=== PATIENT | female | born 1985 ===

== ENCOUNTER 2017-04-15 08:35 | Inpatient (IN) | payer OTHER ==
[2017-04-15 08:38] VITALS: O2SAT 98
--- NOTE | 2017-04-15 08:46 | ED PDOC ---
Psych Transfer Clearance - Clearance Statement Clearance Statement: Reviewed vital signs, lab results and transfer papers. Patient clinically stable for psychiatric admission.
[2017-04-15] MEDS ORDERED: Alum-Mag Hydrox-Simethicone Susp (30 mL) PO PRN (10:53)
[2017-04-15] MEDS ORDERED: DiphenhydrAMINE 50 mg/ml Inj IM PRN (10:53)
[2017-04-15] MEDS ORDERED: Magnesium Hydroxide Susp 30 ml UD PO PRN (10:53)
--- NOTE | 2017-04-15 16:18 | PCM.PSYCH ---
Initial Psychiatric Evaluation - Initial Psychiatric Evaluation Legal Status: Capacity Chief Complaint (in patient's own words): I think every body is watching me Patient's Reaction to Hospitalization: pt ambivalent about hospitalization Current Medications: Active Medications Generic Name Dose Route Start Last Admin Trade Name Freq PRN Reason Stop Dose Admin Acetaminophen 650 mg 04/15/17 10:53 Tylenol 325mg Tab PO Q4 PRN Pain, moderate (4-7) Al Hydrox/Mg Hydrox/Simethicone 30 ml 04/15/17 10:53 Maalox Plus 30 Ml PO Q4 PRN Dyspepsia Diphenhydramine HCl 50 mg 04/15/17 10:53 Benadryl IM Q6 PRN Extrapyramidal S/S Unable PO Diphenhydramine HCl 50 mg 04/15/17 10:53 Benadryl PO Q6 PRN Extrapyramidal Symptoms Haloperidol 5 mg 04/15/17 10:53 Haldol PO Q4 PRN Agitation Haloperidol Lactate 5 mg 04/15/17 10:53 Haldol IM Q4 PRN Agitation, Unable to Take PO Lorazepam 2 mg 04/15/17 10:53 Ativan IM Q4 PRN Anxiety/Agitation,Unable PO Lorazepam 2 mg 04/15/17 10:53 Ativan PO Q4 PRN Anxiety/Agitation Magnesium Hydroxide 30 ml 04/15/17 10:53 Milk Of Magnesia PO HS PRN Constipation Quetiapine Fumarate 100 mg 04/15/17 22:00 Seroquel PO HS KASEY Past Psychiatric History - Past Psychiatric History Pertinent Medical Hx (Current Medical&Sleep Prob, Allergies): Allergies Allergy/AdvReac Type Severity Reaction Status Date / Time No Known Allergies Allergy Verified 04/15/17 08:52
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
--- NOTE | 2017-04-16 01:38 | PCM.BM ---
<EddieManju C - Last Filed: 04/16/17 01:36> Treatment Plan Problems - Problems identified on initial assessmt Hopelessness/ Helplessness Assessment reference: NA Status: Active Altered Sleep Patterns Date Initiated: 04/16/17 Time Initiated: 01:37 Assessment reference: NA Status: Active Treatment assets and liabiliti Patient Assests: cooperative, educated, ADL independent, physically healthy, good support system, negotiates basic needs Patient Liabilities: relationship conflicts - Milieu Protocol Maintain good personal hygiene: daily Encourage regular showers, daily Remind patient to perform daily oral care Conduct patient checks and document Observation sheet: Q15 minutes Maintain personal safety: every shift Educate patient to report safety concerns to staff, every shift Monitor environment for contraband/sharps Medication safety: Monitor for expected outcome, potential side effects: every shift, Assess barriers to learning: every shift, Assess readiness for medication education: every shift Milieu Narrative: start seroquel 100mg qhs with plan to uptitrate gradually to 300mg monitor pt for psychopharmacological effects and side effect profile CBT group and supportive therapy Discharge/Continuing Care - Treatment Team Participation Patient/Family/SO Statement: start seroquel 100mg qhs with plan to uptitrate gradually to 300mg monitor pt for psychopharmacological effects and side effect profile CBT group and supportive therapy <Naresh Vasquez - Last Filed: 04/17/17 08:30> Family Contact Family involvement: Family/SO is involved Family contact: Patient agrees to contact, Family has been contacted by patient , Telephone contact initiated by staff Family contact name: Kim Atkinson Family contacted how many times per week?: 3 Family contact comment: Behavioral Health Tech spoke to pt's mother at the request of the pt. Behavioral Health Tech explained to pt's mother the unit and it's procedure. Pt's mother admitted that pt has been admitted in the past for paranoia. Pt's mother requested that fiction and nonfiction writer prose send an email to pt's boss informing her of pt's hospitalization. - Goals for Treatment Patient goals for treatment: Pt currently exhibiting poor insight and does not believe she has a diagnosed psychiatric disorder, despite this being her 5th psychiatric hospitalization. Behavioral Health Tech confronted pt with the fact that pt may be exhibiting symptoms of paranoia and pt did not deny this assertion. Pt understanding and willing to remain hospitalized to gather herself for several days to decrease her anxiety and distress. Patient's family/SO goals for treatment: Pt's mother did not express any specific goals, but does feel that pt does need to remain hospitalized for psychiatric stabilization. Discharge/Continuing Care - Education Needs Education Needs: Family Medication, Family Diagnosis/Disease Process, Family Coping Skills, Family Community resources, Family Aftercare Safety Plan, Patient Medication, Patient Diagnosis/Disease Process, Patient Coping Skills, Patient Community resources, Patient Aftercare Safety Plan - Discharge Discharge Criteria: Tolerates medication w/o severe side effects, Free of Suicidal thoughts, Free of paranoid thoughts, Free of agitation, Normal sleep pattern, Reduction of target symptoms Discharge to:: Home - Treatment Team Participation Discussed with Family/SO: Yes Was Patient/Family/SO present at Treatment Team Meeting: Yes <Yuki Pozo - Last Filed: 04/18/17 14:37> Discharge/Continuing Care - Treatment Team Participation Patient/Family/SO Statement: Patient attended tx team this morning and was better able to engage in discussion regarding symptoms, progress and tx recommendations. Patient able to correlate calling 911 from [facility] this weekend to symptoms of paranoia independently. Patient depressed but brighter than upon admission. Thoughts are clear and connected. Patient reported anxiety, racing thoughts and poor sleep. Patient expressed feeling better after being given Ativan. Patient remains hesitant regarding medication changes secondary to hx of side effects but has agreed to an increase in Seroquel. Risks of long-term ativan use discussed at length. Patient expressed understanding and is agreeable to having ativan replaced with neurontin. Benefits of eventual addition of a mood stabilizer discussed. Patient ambivalent but receptive. Patient has shown slight improvement in insight into precursors to hospitalization, illness and importance of compliance with aftercare. Patient denies SI/HI and is able to contract for safety on [facility]. 04/18/17 14:37 <Jennifer Cedeño - Last Filed: 04/19/17 11:39> - Diagnosis (1) Paranoid delusion Status: Acute Interventions: 04/19/17 11:39 psychotherapy, pharmacotherapy
[2017-04-16 08:38] LABS: T4 9.91 ug/dl (5.5-11.0)
--- NOTE | 2017-04-16 10:32 | PCM.PYCHPN ---
Psychiatric Progress Note - Psychiatric Progress Note Patient seen today, length of contact: pt seen and evaluated Patient Chief Complaint: pt still feels depressed and also paranoid .pt is still hallucinating seeing the images of things happening in the world .pt denies side effects to meds. DSM 5 Symptoms Update: Bipolar disorder I ,mixed type Medication Change: Yes Mental Status Examination - Cognitive Function Orientation: Person, Place Attention: Poor Concentration: Poor Association: WNL Fund of Knowledge: WNL - Mood Mood: Depressed, Anxious - Affect Affect: Constricted - Formal Thought Process Formal Thought Process: Delusions, Paranoia, Circumstantial - Suicidal Ideation Suicidal Ideation: No - Homicidal Ideation Homicidal Ideation: No Goal/Treatment Plan - Goal/Treatment Plan Progress Toward Problem(s) and Goals/Treatment Plan: will continue to titrate up seroquel to stabilize the pt and engage pt in therapy and groups. disposition plans as per dr frederick
[2017-04-17] MEDS ORDERED: Trimethobenzamide 200 mg/2 mL Inj IM ONE (02:14)
--- NOTE | 2017-04-17 13:09 | PCM.PYCHPN ---
Psychiatric Progress Note - Psychiatric Progress Note Patient seen today, length of contact: pt seen and evaluated Patient Chief Complaint: pt has been increasingly paranoid and last night called the police .pt is still hallucinating seeing the images of things happening in the world .pt denies side effects to meds. Medication Change: Yes Mental Status Examination - Cognitive Function Orientation: Person, Place Attention: Poor Concentration: Poor Association: WNL Fund of Knowledge: WNL - Mood Mood: Depressed, Anxious - Affect Affect: Constricted - Formal Thought Process Formal Thought Process: Delusions, Paranoia, Circumstantial - Suicidal Ideation Suicidal Ideation: No - Homicidal Ideation Homicidal Ideation: No Goal/Treatment Plan - Goal/Treatment Plan Progress Toward Problem(s) and Goals/Treatment Plan: will continue to titrate up seroquel to 175 mg hs to stabilize the pt and engage pt in therapy and groups. disposition plans as per dr frederick will start pt on zoloft 25 mg daily and pt agreed .
[2017-04-17] MEDS ORDERED: Atropine-Diphenoxylate 0.025-2.5 mg Tab PO PRN (15:18)
[2017-04-17 17:10] LABS: HEMOGLOBIN 14.1 g/dL (12.0-16.0); MEAN CELL VOLUME 90.9 fl (81.0-99.0); MEAN CORPUSCULAR HEMOGLOBIN 30.3 pg (27.0-31.0); MEAN CORPUSCULAR HGB CONC 33.3 g/dL (33.0-37.0); RBC 4.66 Mil/uL (3.80-5.20); RED CELL DISTRIBUTION WIDTH 13.7 % (11.5-14.5); WHITE BLOOD COUNT 10.5 K/uL (4.8-10.8)
[2017-04-17 17:21] LABS: ALBUMIN 4.8 g/dL (3.5-5.0); ALT/SGPT 66 U/L (9-52); AST/SGOT 68 U/L (14-36); BLOOD UREA NITROGEN 8 mg/dl (7-17); CALCIUM 9.9 mg/dL (8.4-10.2); GFR AFRICAN-AMERICAN > 60; GFR NON-AFRICAN AMERICAN > 60
[2017-04-17 17:31] LABS: ALB/GLOB RATIO 1.4 (1.0-2.1)
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
[2017-04-17] MEDS ORDERED: Zinc Oxide 5 APPL/28 GM OINT TP PRN (22:15)
--- NOTE | 2017-04-18 15:00 | PCM.PYCHPN ---
Psychiatric Progress Note - Psychiatric Progress Note Patient seen today, length of contact: pt seen and evaluated Patient Chief Complaint: I called the police because I was worried about my mother Problems Identified/Issues Discussed: pt continues to be paranoid guarded, presenting with disorganized thought procees, pt reported she called police on the unit for safety of her mother pt continues to be argumentative about taking medications with limited insight into her illness pt reported early insomnia denied any current suicidal or homicidal ideations denied command hallucinations no reported side ffects of the medications Medical Problems: pt since age 20 was diagnosed with bipolar disorder with multiple inpatient psychiatric hospitalizations including voluntary and involuntary admissions DSM 5 Symptoms Update: bipolar disorder mixed Medication Change: Yes (increase seroquel ) Medical Record Reviewed: Yes Mental Status Examination - Cognitive Function Orientation: Person, Place Attention: Poor Concentration: Poor Association: WNL Fund of Knowledge: WNL - Mood Mood: Depressed, Anxious - Affect Affect: Constricted - Formal Thought Process Formal Thought Process: Delusions, Paranoia, Circumstantial - Suicidal Ideation Suicidal Ideation: No - Homicidal Ideation Homicidal Ideation: No Goal/Treatment Plan - Goal/Treatment Plan Need for Continued Stay: Severe depression anxiety, Discharge may exacerbated symptoms Progress Toward Problem(s) and Goals/Treatment Plan: increase seroquel 200mg qhs with plan to uptitrate gradually to 300mg monitor pt for psychopharmacological effects and side effect profile CBT group and supportive therapy
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
--- NOTE | 2017-04-20 13:22 | PCM.PYCHPN ---
Psychiatric Progress Note - Psychiatric Progress Note Patient seen today, length of contact: pt seen and evaluated Patient Chief Complaint: I have diarrhea and pain because of the medicine Problems Identified/Issues Discussed: pt reported by staff, to be agitated and paranoid last night , needed a lot of encouragment to take her medicine, pt continued to be vrbally agitated and had to be given haldol and ativan pt continues to be paranoid with multiple somatic complaints, discussed with pt starting risperidone mtab, with plan to change to risperidone consta for ensuring medication compliance, pt agreed continues to be isolative in her room, refusing to attend groups today pt denied any current suicidal or homicidal ideations denied command hallucinations Medical Problems: pt since age 20 was diagnosed with bipolar disorder with multiple inpatient psychiatric hospitalizations including voluntary and involuntary admissions DSM 5 Symptoms Update: bipolar disorder mixed severe with psychotic features Medication Change: Yes (start risperidone) Medical Record Reviewed: Yes Mental Status Examination - Cognitive Function Orientation: Person, Place Attention: WNL Concentration: WNL Association: WNL Fund of Knowledge: WNL Decription of patient's judgement and insights: poor insight and judgment - Mood Mood: Depressed, Anxious - Affect Affect: Constricted - Speech Speech: Soft - Formal Thought Process Formal Thought Process: Delusions, Paranoia, Circumstantial Psychotic Thoughts and Behaviors: pt paranoid and guarded - Suicidal Ideation Suicidal Ideation: No - Homicidal Ideation Homicidal Ideation: No Goal/Treatment Plan - Goal/Treatment Plan Need for Continued Stay: Severe depression anxiety, Discharge may exacerbated symptoms Progress Toward Problem(s) and Goals/Treatment Plan: discontinue seroquel and prazosin start risperidone mtab 1mg po bid trazdone 100mg qhs monitor pt for psychopharmacological effects and side effect profile CBT group and supportive therapy Estimated Date of D/C: 04/27/17
[2017-04-20] MEDS: Risperidone M tab 1 MG PO SCH ×2 (14:16→18:54)
[2017-04-21] MEDS: Risperidone M tab 1 MG PO SCH (09:21)
--- NOTE | 2017-04-21 13:06 | PCM.PYCHPN ---
Psychiatric Progress Note - Psychiatric Progress Note Patient seen today, length of contact: pt seen and evaluated Patient Chief Complaint: I feel better today Problems Identified/Issues Discussed: pt seen in day room, appears less paranoid, interacting with other patients and attending groups, reported feeling less depressed, mood better and brighter affect, discussed with pt increasing risperidone to 2mg qhs , no reported side effects of medication, pt less guarded, denied any current suicidal or homicidal ideations denied perceptual disturbances Medical Problems: pt since age 20 was diagnosed with bipolar disorder with multiple inpatient psychiatric hospitalizations including voluntary and involuntary admissions DSM 5 Symptoms Update: bipolar disorder mixed Medication Change: Yes (increase risperidone) Medical Record Reviewed: Yes Mental Status Examination - Cognitive Function Orientation: Person, Place Attention: WNL Concentration: WNL Association: WNL Fund of Knowledge: WNL Decription of patient's judgement and insights: poor insight and judgment - Mood Mood: Depressed, Anxious - Affect Affect: Constricted - Speech Speech: Soft - Formal Thought Process Formal Thought Process: Paranoia, Circumstantial Psychotic Thoughts and Behaviors: pt paranoid and guarded - Suicidal Ideation Suicidal Ideation: No - Homicidal Ideation Homicidal Ideation: No Goal/Treatment Plan - Goal/Treatment Plan Need for Continued Stay: Severe depression anxiety, Discharge may exacerbated symptoms Progress Toward Problem(s) and Goals/Treatment Plan: risperidone mtab 3mg monitor pt for psychopharmacological effects and side effect profile CBT group and supportive therapy Estimated Date of D/C: 04/27/17
[2017-04-21] MEDS ORDERED: Risperidone M TAB 2 MG PO SCH (22:00)
[2017-04-22] MEDS ORDERED: Risperidone M tab 1 MG PO SCH (09:00)
[2017-04-22] MEDS ORDERED: risperiDONE Consta 25mg/2ml Syringe IM ONE (14:14)
--- NOTE | 2017-04-22 14:29 | PCM.PYCHPN ---
Psychiatric Progress Note - Psychiatric Progress Note Patient seen today, length of contact: pt seen and evaluated Patient Chief Complaint: I feel overwhelmed, worried about the future Problems Identified/Issues Discussed: pt seen in day room, thought process more clear, resolving paranoid delusions, pt more interactive with the treatment team, less isolative, showing more insight into her illness, discussed with pt starting risperidone consta injection to ensure compliance and avoid re hospitalization, pt agreed pt reported feeling anxious about her work and her follow up, CBT provided and discussed with pt the need for follow up therapy on discharge no reported side effects of medications denied any current suicidal or homicidal ideations Medical Problems: pt since age 20 was diagnosed with bipolar disorder with multiple inpatient psychiatric hospitalizations including voluntary and involuntary admissions DSM 5 Symptoms Update: bipolar I disorder mixed Medication Change: Yes (start risperidone consta) Medical Record Reviewed: Yes Mental Status Examination - Cognitive Function Orientation: Person, Place Attention: WNL Concentration: WNL Association: WN Fund of Knowledge: [facility] Decription of patient's judgement and insights: poor insight and judgment - Mood Mood: Depressed, Anxious - Affect Affect: Constricted - Speech Speech: Soft - Formal Thought Process Formal Thought Process: Paranoia, Circumstantial Psychotic Thoughts and Behaviors: clearing off of the paranoid delusions denied perceptual disturbances, non elicited - Suicidal Ideation Suicidal Ideation: No - Homicidal Ideation Homicidal Ideation: No Goal/Treatment Plan - Goal/Treatment Plan Need for Continued Stay: Severe depression anxiety, Discharge may exacerbated symptoms Progress Toward Problem(s) and Goals/Treatment Plan: start risperidone consta 25mg IM risperidone mtab 2mg monitor pt for psychopharmacological effects and side effect profile CBT group and supportive therapy Estimated Date of D/C: 04/27/17
[2017-04-22] MEDS: Risperidone M tab 1 MG PO SCH (21:11)
[2017-04-23] MEDS ORDERED: Risperidone M tab 1 MG PO SCH (09:00)
--- NOTE | 2017-04-23 11:22 | PCM.PYCHPN ---
Psychiatric Progress Note - Psychiatric Progress Note Patient seen today, length of contact: Patient evaluated, case discussed with team, chart reviewed Patient Chief Complaint: "I'm up and down." Problems Identified/Issues Discussed: Patient reports that her mood continues to fluctuate, but overall she believes her mood has improved since admission. She also reports some mild intermittent AH, but they are also diminished since admission. Patient received Risperdal Consta 25 mg yesterday. Psychoeducation provided re: importance of medication and follow-up treatment. Medication Change: No Medical Record Reviewed: Yes Consults ordered or reviewed: Medicine consult Mental Status Examination - Cognitive Function Orientation: Person, Place, Situation, Time Memory: Intact Attention: WNL Concentration: WNL Association: WNL Fund of Knowledge: [facility] Decription of patient's judgement and insights: Fair I/J - Mood Mood: Anxious - Affect Affect: Constricted - Speech Speech: Soft - Formal Thought Process Formal Thought Process: Hallucinations Psychotic Thoughts and Behaviors: Mild intermittent AH - Suicidal Ideation Suicidal Ideation: No - Homicidal Ideation Homicidal Ideation: No Goal/Treatment Plan - Goal/Treatment Plan Need for Continued Stay: Severe depression anxiety, Discharge may exacerbated symptoms Progress Toward Problem(s) and Goals/Treatment Plan: Bipolar Disorder w/ psychotic features -Continue Risperdal 1 mg PO Q12 -Patient given Risperdal Consta 25 mg IM on 04/22 -Individual and group therapy -Likely discharge on Tuesday if patient continues to improve clinically -Psychoeducation provided -Continue Trazodone 50 mg PO HS Estimated Date of D/C: 04/27/17
[2017-04-23] MEDS: Risperidone M tab 1 MG PO SCH (21:16)
--- NOTE | 2017-04-24 09:42 | PCM.PYCHPN ---
Psychiatric Progress Note - Psychiatric Progress Note Patient seen today, length of contact: Patient evaluated, case discussed with team, chart reviewed Patient Chief Complaint: "I'm feeling better." Problems Identified/Issues Discussed: Patient reports that her mood is improving. She denies current AH, reports that she last heard them yesterday. She feels tired during the day, so we discussed switching the Risperdal to night time. Psychoeducation provided re: importance of medication and follow-up treatment. Medication Change: No Medical Record Reviewed: Yes Consults ordered or reviewed: Medicine consult Mental Status Examination - Cognitive Function Orientation: Person, Place, Situation, Time Memory: Intact Attention: WNL Concentration: WNL Association: WNL Fund of Knowledge: [facility] Decription of patient's judgement and insights: Fair I/J - Mood Mood: Anxious - Affect Affect: Constricted - Speech Speech: Appropriate - Formal Thought Process Formal Thought Process: No Impairment Psychotic Thoughts and Behaviors: No AH/VH/paranoia/delusions - Suicidal Ideation Suicidal Ideation: No - Homicidal Ideation Homicidal Ideation: No Goal/Treatment Plan - Goal/Treatment Plan Need for Continued Stay: Discharge may exacerbated symptoms Progress Toward Problem(s) and Goals/Treatment Plan: Bipolar Disorder w/ psychotic features -Switch Risperdal to 2 mg PO HS -Patient given Risperdal Consta 25 mg IM on 04/22 -Individual and group therapy -Likely discharge on Tuesday if patient continues to improve clinically -Psychoeducation provided -Continue Trazodone 50 mg PO HS Estimated Date of D/C: 04/25/17
[2017-04-25 09:12] VITALS: BP 119/74; PULSE 87; RESP 18; TEMP 96.6
--- NOTE | 2017-04-25 09:14 | PCM.PYCHDC ---
Mental Status Examination - Mental Status Examination Orientation: Person, Place, Situation, Time Memory: Intact Mood: Neutral Affect: Broad Speech: Appropriate Attention: WNL Concentration: WNL Association: WNL Fund of Knowledge: WNL Formal Thought Process: No Impairment Description of patient's judgement and insight: Good I/J Psychotic Thoughts and Behaviors: No AH/VH/paranoia/delusions Suicidal Ideation: No Current Homicidal Ideation?: No Discharge Summary - Discharge Note Reason for Hospitalization: As per initial H & P: "pt with previous psychiatric diagnosis of bipolar disorder, has not been compliant with medications or follow up for two years, pt has been decompensating reported having episodes of depression with low energy and inability to function alternating with hypomanic episodes with poor sleep spending sprees and having multiple partners, pt for past two weeks has been increasingly paranoid feeling that people are after her wants to hurt her m , she became unable to function at work, on day of evaluation pt called the police stating that she is being held as hostage by evil people in her house, pt was found in her bed by police, exhibiting paranoid and disorganized behavior resistant to comming to ER and needed a lot of encouragement on evaluation pt guarded evasive, parnaoid towards undersigned and staff, stating she is fearing for her safety and worried something bad will happen to her denied perceptual disturbances or command hallucinations denied substance use" Consultations:: List each consultation separately and include: 1. Reason for request. 2. Findings. 3. Follow-up Consultations: Medicine consult Summary of Hospital Course include:: 1. Description of specific treatment plan utilized for patients during their course of treatmen. 2. Summarize the time- course for resolution of acute symptoms and/or regressed behaviors. 3. Describe issues identified and worked on during hospitalization. 4. Describe medication utilized. 5. Describe medical problems identified and treated. 6. Reassessment of suicide risk Summary of Hospital Course: Patient was admitted to the psychiatry unit. Individual and group therapy were provided. Patient was evaluated by a emergency medical service manager. She was stabilized on Risperdal and was given Risperdal 25 mg IM on 04/22/17 (next injection due 05/06); patient will continue oral Risperdal until her next injection. She no longer reports mood disturbances or psychotic symptoms. No current depression/ anxiety/AH/VH/paranoia/delusions/SI/HI. Patient is psychiatrically stable for discharge with outpatient follow-up. - Final Diagnosis (DSM 5) Condition upon Discharge: STABLE DSM 5: Bipolar Disorder w/ psychotic features Disposition: HOME/ ROUTINE Follow-up Treatment Plan: Bipolar Disorder w/ psychotic features -Continue Risperdal to 2 mg PO HS until next Rispedal Consta injection -Patient given Risperdal Consta 25 mg IM on 04/22 -Continue Trazodone 50 mg PO HS -Discharge w/ outpatient follow-up Prescriptions/Medication Reconciliation: Risperidone [RisperDAL Consta] 25 mg IM Q2W #1 syr risperiDONE [RisperDAL Tab] 2 mg PO HS #30 tab traZODone [Desyrel] 50 mg PO HS #30 tab - Smoking Cessation Smoking Cessation Medication prescribed: No Reason for not providing: Not indicated - Antipsychotic Medications Pt discharged on 2 or more routine antipsychotic medications: No
== END 2017-04-25 15:30 | disposition home or self-care (01) | DRG 885 ==
LOC: H.ER 08:35 → H.ERHOLD 08:45 → H.PSYCH 09:22
PROVIDERS: ADMIT Psychiatry & Neurology Psychiatry; ATTEND Psychiatry & Neurology Psychiatry
PROC: GZHZZZZ Group Psychotherapy (ICD-10-PCS; principal; 2017-04-17)
PROC: GZ51ZZZ Individual Psychotherapy, Behavioral (ICD-10-PCS; 2017-04-17)
DX: F31.64 Bipolar disorder, current episode mixed, severe, with psychotic features (principal); Z91.14 Patient's other noncompliance with medication regimen; F23 Brief psychotic disorder; G47.00 Insomnia, unspecified; K52.9 Noninfective gastroenteritis and colitis, unspecified; Z79.899 Other long term (current) drug therapy; F41.9 Anxiety disorder, unspecified

== ENCOUNTER 2017-05-02 21:52 | Inpatient (IN) | payer OTHER ==
[2017-05-02 22:50] VITALS: BMI 21.0
--- NOTE | 2017-05-03 00:44 | ED PDOC ---
HPI: Psych/Substance Abuse Time Seen by Provider: 05/02/17 23:00 Chief Complaint (Nursing): Psychiatric Evaluation Chief Complaint (Provider): Psychiatric Evaluation History Per: Patient History/Exam Limitations: no limitations Current Symptoms Are (Timing): Still Present Suicide/Self Injury Attempted (Context): None Modifying Factor(s): Alcohol Additional Complaint(s): 32 year old female presents to ED for a psychiatric evaluation and has a past medical history of bipolar disorder, anxiety, and depression. Patient was recently an inpatient in this hospital and had her medications changed. She stopped takin them yesterday because she felt as if "they weren't working". Notes having an "episode" today where she broke down and shaved off all of the hair on her head. (-) suicidal/homicidal ideation or hallucinations. Admits to alcohol usage today, but denies drug use. PCP: in [place] Past Medical History Reviewed: Historical Data, Nursing Documentation, Vital Signs Vital Signs: Last Vital Signs Temp 97.9 F 05/02/17 22:50 Pulse 90 05/02/17 22:50 Resp 16 05/02/17 22:50 BP 114/72 05/02/17 22:50 Pulse Ox 98 05/02/17 22:50 - Medical History PMH: Anxiety, Bipolar Disorder, Depression Denies: No Chronic Diseases, Chronic Kidney Disease - Family History Family History: States: No Known Family Hx - Social History Current smoker - smoking cessation education provided: No Alcohol: Other ((+) drinker) Drugs: Cannabis, Other (Hookah) - Home Medications Home Medications: Ambulatory Orders Medication Instructions Recorded Risperidone [RisperDAL Consta] 25 mg IM Q2W #1 syr 04/23/17 traZODone [Desyrel] 50 mg PO HS #30 tab 04/23/17 risperiDONE [RisperDAL Tab] 2 mg PO HS #30 tab 04/24/17 - Allergies Allergies/Adverse Reactions: Allergies Allergy/AdvReac Type Severity Reaction Status Date / Time No Known Allergies Allergy Verified 05/02/17 22:50 Review of Systems ROS Statement: Except As Marked, All Systems Reviewed And Found Negative Psych: Positive for: Other ((+) "episode", (-) homicidal ideation). Negative for: Psychosis, Suicidal ideation Physical Exam - Reviewed Nursing Documentation Reviewed: Yes Vital Signs Reviewed: Yes - Physical Exam Appears: Positive for: Non-toxic, No Acute Distress Head Exam: Positive for: ATRAUMATIC, NORMOCEPHALIC Skin: Positive for: Warm, Dry Eye Exam: Positive for: EOMI, PERRL Neck: Positive for: Painless ROM Respiratory: Negative for: Accessory Muscle Use, Respiratory Distress Extremity: Positive for: Normal ROM. Negative for: Deformity Lymphatic: Negative for: Adenopathy Neurologic/Psych: Positive for: Alert, Mood/Affect (flat). Negative for: Motor/ Sensory Deficits - Laboratory Results Result Diagrams: 05/02/17 00:45 05/02/17 23:59 - ECG O2 Sat by Pulse Oximetry: 98 (RA) Pulse Ox Interpretation: Normal Medical Decision Making Medical Decision Makin Initial impression: decompensated bipolar disorder Initial plan: * EtOH serum * Labs * UDrug screen * Crisis eval * 1:1 OBS [address] Camargo pending labs and crisis eval. Scribe Attestation: Documented by Vanessa Rand acting as a scribe for Saima Buckley MD. Scribe Attestation: All medical record entries made by the Scribe were at my direction and personally dictated by me. I have reviewed the chart and agree that the record accurately reflects my personal performance of the history, physical exam, medical decision making, and the department course for this patient. I have also personally directed, reviewed, and agree with the discharge instructions and disposition. Disposition - Clinical Impression Clinical Impression: Bipolar disorder - Disposition Disposition: Transfer of Care Disposition Time: 00:00 Condition: STABLE Patient Signed Over To: Kelton Camargo III Handoff Comments: pending labs and crisis eval
[2017-05-03 00:51] LABS: BARBITURATES, UR NEGATIVE (NEGATIVE); BENZODIAZEPINES, UR NEGATIVE (NEGATIVE); OPIATES, UR NEGATIVE (NEGATIVE); PHENCYCLIDINE, UR NEGATIVE (NEGATIVE)
[2017-05-03 00:56] LABS: BASO # 0.1 K/uL (0.0-0.2); BASO % 0.6 % (0.0-2.0); EOS % 0.3 % (0.0-4.0); HEMOGLOBIN 12.5 g/dL (12.0-16.0); LYMPH # 1.9 K/uL (1.0-4.3); LYMPH % 12.7 % (20.0-40.0); MEAN CELL VOLUME 89.8 fl (81.0-99.0); MEAN CORPUSCULAR HGB CONC 33.4 g/dL (33.0-37.0); MEAN PLATELET VOLUME 7.7 fl (7.2-11.7); MONO # 1.1 K/uL (0.0-0.8); MONO % 7.3 % (0.0-10.0); NEUT # 11.8 K/uL (1.8-7.0); NEUT % 79.1 % (50.0-75.0); RBC 4.16 Mil/uL (3.80-5.20); WHITE BLOOD COUNT 14.9 K/uL (4.8-10.8)
[2017-05-03 01:11] LABS: ALB/GLOB RATIO 1.3 (1.0-2.1); ALBUMIN 4.7 g/dL (3.5-5.0); ALT/SGPT 42 U/L (9-52); AST/SGOT 23 U/L (14-36); BLOOD UREA NITROGEN 14 mg/dl (7-17); CALCIUM 9.5 mg/dL (8.4-10.2); GFR AFRICAN-AMERICAN > 60; GFR NON-AFRICAN AMERICAN > 60
[2017-05-03 02:10] LABS: SQUAMOUS EPITHIAL 4 /hpf (0-5); URINE BACTERIA OCC (<OCC); URINE BILIRUBIN NEGATIVE (NEGATIVE); URINE BLOOD LARGE (NEGATIVE); URINE CLARITY CLOUDY (Clear); URINE COLOR YELLOW (YELLOW); URINE GLUCOSE (UA) NEG (Normal); URINE PROTEIN 100 mg/dL (NEGATIVE); URINE UROBILINOGEN 0.2-1.0 mg/dL (0.2-1.0)
[2017-05-03 02:11] LABS: URINE LEUKOCYTE ESTERASE SMALL Leu/uL (Negative)
--- NOTE | 2017-05-03 03:13 | ED PDOC ---
- Laboratory Results Result Diagrams: 05/02/17 00:45 05/02/17 23:59 - ECG O2 Sat by Pulse Oximetry: 99 Medical Decision Making Medical Decision Making: per crisis admit 3N labs reviewed, mild elev WBC Denies cough, abd pain, headache or neck pain UA +blood and small leuks preg neg Denies abdominal pain, no abd or CVA tenderness. CXR no acute infiltrate Cover urine with cipro given mildly elev WBC Admit psychiatry Medically stable for psychiatric admission at this time. Disposition Counseled Patient/Family Regarding: Studies Performed, Diagnosis, Need For Followup - Clinical Impression Clinical Impression: Bipolar disorder - POA Present On Arrival: None - Disposition Disposition: Admitted as In-Patient Disposition Time: 00:55 Condition: STABLE
[2017-05-03] MEDS ORDERED: Magnesium Hydroxide Susp 30 ml UD PO PRN (03:50)
--- NOTE | 2017-05-03 04:08 | PCM.BM ---
<Payal Lazcano - Last Filed: 05/03/17 04:06> Treatment Plan Problems - Problems identified on initial assessmt Auditory Hallucinations Date Initiated: 05/03/17 Time Initiated: 04:07 Assessment reference: NA Status: Active Medication Nonadherence Date Initiated: 05/03/17 Time Initiated: 04:07 Assessment reference: NA Status: Active Altered Thought Process Date Initiated: 05/03/17 Time Initiated: 04:08 Assessment reference: NA Status: Active Ineffective Coping Date Initiated: 05/03/17 Time Initiated: 04:08 Assessment reference: NA Status: Active Treatment assets and liabiliti Patient Assests: cooperative, educated, ADL independent, physically healthy, good support system, negotiates basic needs Patient Liabilities: other (impaired insight and noncomplinace wiht meds) - Milieu Protocol Maintain good personal hygiene: daily Remind patient to perform daily oral care , every shift Encourage regular showers, every shift Assist patient to perform ADL's Conduct patient checks and document Observation sheet: Q15 minutes Maintain personal safety: daily Educate patient to report safety concerns to staff, every shift Monitor environment for contraband/sharps Medication safety: Monitor for expected outcome, potential side effects: daily, Assess barriers to learning: daily, Assess readiness for medication education: every shift <Naresh Vasquez - Last Filed: 05/04/17 11:43> Family Contact Family involvement: Family/SO is involved Family contact: Patient declines to allow family contact at present Family contact name: Kim (Mother) [phone] Family contacted how many times per week?: 4 Family contact comment: Cash Applications Clerk spoke with pt's mother on 05/03/17, however, pt verbalized that she would like staff not to speak to anyone in her life at this time as she wants time to heal alone. Cash Applications Clerk spoke with pt's mother who had multiple concerns regarding pt. Pt's mother does not understand how pt could have decompensated so quickly and so severely. Pt's mother reported that she has never seen pt present this bizarrely and was fearful that pt may harm herself. Cash Applications Clerk explained that pt is not in danger of intentionally harming herself, but in this psychotic state may engage in impulsive, risky behaviors that may put her in danger. Cash Applications Clerk explained that pt was not discharged too early last time, but may have needed more time on the Risperdal. However, pt does lack needed insight into her illness to understand the need for treatment and continued medication compliance. Cash Applications Clerk feels strongly that pt would benefit from living with her mother after discharge and explained to pt's mother that the team will do everything in their power to ensure that pt is discharged with a more comprehensive plan to avoid such a rapid decompensation. - Goals for Treatment Patient goals for treatment: Pt unable to verbalize any goals in team. Pt said multiple times that she did not want to "talk about it right now." Pt appeared internally preoccupied with intense eye-contact. Patient's family/SO goals for treatment: Pt's mother would like further stabilization and a more comprehensive discharge plan than previous admission. Discharge/Continuing Care - Education Needs Education Needs: Patient Medication, Patient Diagnosis/Disease Process, Patient Coping Skills, Patient Placement options, Patient Personal Hygiene/Grooming, Patient Aftercare Safety Plan - Discharge Discharge Criteria: Tolerates medication w/o severe side effects, Free of paranoid thoughts, Free of agitation, Normal sleep pattern, Ability to care for self, Reduction of target symptoms Discharge to:: Home - Treatment Team Participation Patient/Family/SO Statement: 05/04/17 11:58 Pt unable to verbalize any goals in team. Pt said multiple times that she did not want to "talk about it right now." Pt appeared internally preoccupied with intense eye-contact. Dr. Cedeño attempted to engage pt by acknowledging that pt appeared to want to say something, but pt was not ready to speak at this time. Discussed with Family/SO: Yes Was Patient/Family/SO present at Treatment Team Meeting: Yes <Jennifer Cedeño - Last Filed: 05/05/17 11:33> - Diagnosis (1) Psychosis Status: Acute Interventions: PSYCHOTHERAPY , PHARMACOTHERAPY 05/05/17 11:33
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
--- NOTE | 2017-05-03 11:46 | RAD ---
HISTORY: Infiltrate. COMPARISON: No prior. FINDINGS: LUNGS: No active pulmonary disease. PLEURA: No significant pleural effusion identified, no pneumothorax apparent. CARDIOVASCULAR: Normal. OSSEOUS STRUCTURES: No significant abnormalities. VISUALIZED UPPER ABDOMEN: Normal. OTHER FINDINGS: None. IMPRESSION: No active disease.
[2017-05-03 12:45] VITALS: O2SAT 98
--- NOTE | 2017-05-04 14:30 | PCM.PYCHPN ---
Psychiatric Progress Note - Psychiatric Progress Note Patient seen today, length of contact: pt evaluated discussed with team chart reviewed Patient Chief Complaint: I could not trust anybody Problems Identified/Issues Discussed: pt on evaluation, very guarded, presenting with delusions of persecution, pt speech underproductive, she appears internally preoccupied and at times responding to internal stimuli, pt reported having auditory hallucinations hearing her aunt and grandmother,s friend guiding her, denied any current command hallucinations,pt also reported she shaved her hair so she would not be known as she knows she is being targeted by someone, would not elaborate more mood extremely labile at times tearful and then laughing , continues to report she has no desire to be on medication and pt needed psychoeducation about importance of medications pt denied any current S/H I , floridaly psychotic and labile DSM 5 Symptoms Update: bipolar disorder MRE mixed severe with psychotic features Medication Change: No Medical Record Reviewed: Yes Mental Status Examination - Cognitive Function Orientation: Person, Place, Situation Attention: Poor Concentration: Poor Association: Loose Decription of patient's judgement and insights: impaired insight, poor impulse control - Mood Mood: Anxious - Affect Additional comments: labile - Speech Speech: Soft Additional comments: underproductive, disorganized - Formal Thought Process Formal Thought Process: Delusions, Paranoia, Other (Patient internally preoccupied and bizarre; unwillign to talk w/ signwriter at this time) Psychotic Thoughts and Behaviors: paranoid, internally preoccupied, experiencing non command auditory hallucinations - Suicidal Ideation Suicidal Ideation: No - Homicidal Ideation Homicidal Ideation: No Goal/Treatment Plan - Goal/Treatment Plan Need for Continued Stay: Discharge may exacerbated symptoms Progress Toward Problem(s) and Goals/Treatment Plan: continue with riaperidone 3mg risperidone consta im 50mg to start on the 9 group and supportive therapy Estimated Date of D/C: 05/13/17
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
[2017-05-04] MEDS: Lactobacillus Acidophilus 500 MU Cap PO SCH (17:35)
[2017-05-04] MEDS: Nasal Spray(Ocean spray) NAS PRN (21:36)
[2017-05-04] MEDS: Artificial Tears Opht Soln OU PRN (21:39)
[2017-05-05 06:41] LABS: HEMOGLOBIN 12.2 g/dL (12.0-16.0); MEAN CELL VOLUME 89.8 fl (81.0-99.0); MEAN CORPUSCULAR HEMOGLOBIN 29.8 pg (27.0-31.0); MEAN CORPUSCULAR HGB CONC 33.2 g/dL (33.0-37.0); RBC 4.09 Mil/uL (3.80-5.20); RED CELL DISTRIBUTION WIDTH 13.5 % (11.5-14.5); WHITE BLOOD COUNT 14.2 K/uL (4.8-10.8)
[2017-05-05] MEDS: Lactobacillus Acidophilus 500 MU Cap PO SCH ×2 (11:44→17:15)
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
[2017-05-05] MEDS: Nasal Spray(Ocean spray) NAS PRN (21:32)
[2017-05-05] MEDS: Artificial Tears Opht Soln OU PRN (21:40)
[2017-05-06] MEDS: Lactobacillus Acidophilus 500 MU Cap PO SCH ×2 (09:03→17:57)
--- NOTE | 2017-05-06 12:36 | PCM.PYCHPN ---
Psychiatric Progress Note - Psychiatric Progress Note Patient seen today, length of contact: pt evaluated discussed with team chart reviewed Patient Chief Complaint: I wish I could hav along time off with my parents in [facility] Problems Identified/Issues Discussed: pt on evaluation, less paranoid , and less guarded , more interacting with other patient s and attending groups, reported had much better sleep with remeron, pt opening up about her continous current use of alcohol, also continues to have craving for cannabis motivational therapy provided , trying to bring to patient awareness the negative impact of drugs on her mental illness discussed with pt joining [facility] on discharge for continuity of care , pt agreed pt to start on risperidone consta today, no reported side effects of medications , pt denied any current suicidal or homicidal ideations, denied command hallucinations DSM 5 Symptoms Update: bipolar I disorder mixed severe with psychotic features substance use disorder ptsd Medication Change: Yes (REMERON) Medical Record Reviewed: Yes Mental Status Examination - Cognitive Function Orientation: Person, Place, Situation Attention: WNL Concentration: WNL Association: WNL Fund of Knowledge: WN Decription of patient's judgement and insights: partial insight , poor judgment - Mood Mood: Anxious - Affect Affect: Depressed - Speech Speech: Soft - Formal Thought Process Formal Thought Process: Delusions, Paranoia, Other (Patient internally preoccupied and bizarre; unwillign to talk w/ casualty underwriter at this time) Psychotic Thoughts and Behaviors: paranoid, internally preoccupied, experiencing non command auditory hallucinations - Suicidal Ideation Suicidal Ideation: No - Homicidal Ideation Homicidal Ideation: No Goal/Treatment Plan - Goal/Treatment Plan Need for Continued Stay: Discharge may exacerbated symptoms Progress Toward Problem(s) and Goals/Treatment Plan: continue with risperidone 3mg oral risperidone consta im 50mg to start today REMERON 7.5MG QHS motivational, group and supportive therapy Estimated Date of D/C: 05/13/17
[2017-05-06] MEDS: Artificial Tears Opht Soln OU PRN (14:18)
[2017-05-06] MEDS: Nasal Spray(Ocean spray) NAS PRN (14:40)
[2017-05-06] MEDS: Alum-Mag Hydrox-Simethicone Susp (30 mL) PO PRN (20:14)
[2017-05-07] MEDS: Lactobacillus Acidophilus 500 MU Cap PO SCH ×2 (09:33→21:28)
--- NOTE | 2017-05-07 10:36 | PCM.PYCHPN ---
Psychiatric Progress Note - Psychiatric Progress Note Patient seen today, length of contact: pt evaluated discussed with team chart reviewed Patient Chief Complaint: I have pain all over my body and lumps in my breast Problems Identified/Issues Discussed: pt on evaluation, presenting with multiple physical complaints, somatic delusions and preoccupation, depressed mood and affect pt continues to have tangential thought process, concrete and limited insight into illness pt denied any current suicidal or homicidal ideations, risperidone consta increased to 50mg im yesterday, no reported side effects DSM 5 Symptoms Update: bipolar disorder/ cannabis use disorder rule out schizoaffective disorder Medication Change: No Medical Record Reviewed: Yes Mental Status Examination - Cognitive Function Orientation: Person, Place, Situation Attention: Poor Concentration: Poor Association: WNL Fund of Knowledge: WNL Decription of patient's judgement and insights: partial insight , poor judgment - Mood Mood: Anxious - Affect Affect: Depressed - Speech Speech: Soft - Formal Thought Process Formal Thought Process: Delusions, Paranoia, Other (Patient internally preoccupied and bizarre; unwillign to talk w/ scenario writer at this time) Psychotic Thoughts and Behaviors: paranoid, internally preoccupied, experiencing non command auditory hallucinations, presenting with somatic delusions - Suicidal Ideation Suicidal Ideation: No - Homicidal Ideation Homicidal Ideation: No Goal/Treatment Plan - Goal/Treatment Plan Need for Continued Stay: Discharge may exacerbated symptoms Progress Toward Problem(s) and Goals/Treatment Plan: continue with risperidone 3mg oral risperidone consta im 50mg REMERON 7.5MG QHS motivational, group and supportive therapy Estimated Date of D/C: 05/13/17
[2017-05-08] MEDS: Lactobacillus Acidophilus 500 MU Cap PO SCH ×2 (11:09→17:19)
--- NOTE | 2017-05-08 12:22 | PCM.PYCHPN ---
Psychiatric Progress Note - Psychiatric Progress Note Patient seen today, length of contact: pt evaluated discussed with team chart reviewed Patient Chief Complaint: I am feeling better today Problems Identified/Issues Discussed: pt on evaluation, , less disorganized, reported better mood as she anticipates a visit from her mother, less somatic preoccupation pt denied any current suicidal or homicidal ideations, no reported side effects of medications DSM 5 Symptoms Update: bipolar disorder cannabis use disorder Medication Change: No Medical Record Reviewed: Yes Mental Status Examination - Cognitive Function Orientation: Person, Place, Situation Attention: Poor Concentration: Poor Association: WNL Fund of Knowledge: WNL Decription of patient's judgement and insights: partial insight , poor judgment - Mood Mood: Anxious - Affect Affect: Depressed - Speech Speech: Soft - Formal Thought Process Formal Thought Process: Delusions, Paranoia, Other (Patient internally preoccupied and bizarre; unwillign to talk w/ credit underwriter at this time) Psychotic Thoughts and Behaviors: paranoid, internally preoccupied, experiencing non command auditory hallucinations, presenting with somatic delusions - Suicidal Ideation Suicidal Ideation: No - Homicidal Ideation Homicidal Ideation: No Goal/Treatment Plan - Goal/Treatment Plan Need for Continued Stay: Discharge may exacerbated symptoms Progress Toward Problem(s) and Goals/Treatment Plan: continue with risperidone 3mg oral risperidone consta im 50mg REMERON 7.5MG QHS motivational, group and supportive therapy Estimated Date of D/C: 05/13/17
[2017-05-08] MEDS: Artificial Tears Opht Soln OU PRN ×2 (15:25→23:17)
[2017-05-08] MEDS: Nasal Spray(Ocean spray) NAS PRN ×2 (15:31→23:20)
[2017-05-09] MEDS: Lactobacillus Acidophilus 500 MU Cap PO SCH (09:14)
--- NOTE | 2017-05-09 15:13 | PCM.PYCHPN ---
Psychiatric Progress Note - Psychiatric Progress Note Patient seen today, length of contact: pt evaluated discussed with team chart reviewed Patient Chief Complaint: I think I have breast cancer Problems Identified/Issues Discussed: pt on evaluation, , today reported that she worries about her health and because of her food habits she believes she may have lump in her breast, continues to have somatic delusions, also limited insight into her illness stating that she thinks weed is therapeutic for her discussed with pt the effect cannabis has on her thought process, also discussed the need for partial program on discharge and compliance with therapy no reported side effects of medications, no reported suicidal or homicidal ideations DSM 5 Symptoms Update: schizoaffective disorder bipolar Medication Change: No Medical Record Reviewed: Yes Mental Status Examination - Cognitive Function Orientation: Person, Place, Situation Attention: Poor Concentration: Poor Association: WNL Fund of Knowledge: WNL Decription of patient's judgement and insights: partial insight , poor judgment - Mood Mood: Anxious - Affect Affect: Depressed - Speech Speech: Soft - Formal Thought Process Formal Thought Process: Delusions, Paranoia, Other (Patient internally preoccupied and bizarre; unwillign to talk w/ fiction and nonfiction prose writer at this time) Psychotic Thoughts and Behaviors: paranoid, internally preoccupied, experiencing non command auditory hallucinations, presenting with somatic delusions - Suicidal Ideation Suicidal Ideation: No - Homicidal Ideation Homicidal Ideation: No Goal/Treatment Plan - Goal/Treatment Plan Need for Continued Stay: Discharge may exacerbated symptoms Progress Toward Problem(s) and Goals/Treatment Plan: continue with risperidone 3mg oral risperidone consta im 50mg REMERON 7.5MG QHS motivational, group and supportive therapy Estimated Date of D/C: 05/13/17
--- NOTE | 2017-05-10 15:23 | PCM.PYCHPN ---
Psychiatric Progress Note - Psychiatric Progress Note Patient seen today, length of contact: pt evaluated discussed with team chart reviewed Patient Chief Complaint: I wish I could leave Problems Identified/Issues Discussed: pt on evaluation, appears calmer, less disorganized, continues to have somatic preoccupation stating she is worriied about having an illness, pt thought process appears more clear she is able to verbalize how she realizes she was paranoid , pt denied any current sucidal or homicidal ideations denied perceptual disturbances no reported siide effects of medications DSM 5 Symptoms Update: schizoaffective disorder Medication Change: No Medical Record Reviewed: Yes Mental Status Examination - Cognitive Function Orientation: Person, Place, Situation Attention: Poor Concentration: Poor Association: WNL Fund of Knowledge: WNL Decription of patient's judgement and insights: partial insight , poor judgment - Mood Mood: Anxious - Affect Affect: Depressed - Speech Speech: Soft - Formal Thought Process Formal Thought Process: Delusions, Paranoia, Other (Patient internally preoccupied and bizarre; unwillign to talk w/ fha underwriter at this time) Psychotic Thoughts and Behaviors: paranoid, internally preoccupied, experiencing non command auditory hallucinations, presenting with somatic delusions - Suicidal Ideation Suicidal Ideation: No - Homicidal Ideation Homicidal Ideation: No Goal/Treatment Plan - Goal/Treatment Plan Need for Continued Stay: Discharge may exacerbated symptoms Progress Toward Problem(s) and Goals/Treatment Plan: continue with risperidone 3mg oral risperidone consta im 50mg REMERON 7.5MG QHS motivational, group and supportive therapy Estimated Date of D/C: 05/13/17
[2017-05-10] MEDS: Nasal Spray(Ocean spray) NAS PRN (22:05)
[2017-05-10] MEDS: Artificial Tears Opht Soln OU PRN (22:05)
[2017-05-11] MEDS: Petrolatum UD PAK TOP SCH ×3 (13:00→18:42)
--- NOTE | 2017-05-11 15:17 | PCM.PYCHPN ---
Psychiatric Progress Note - Psychiatric Progress Note Patient seen today, length of contact: pt evaluated discussed with team chart reviewed Patient Chief Complaint: I do not want to take the subway, I know they will target me because my dad was in the Problems Identified/Issues Discussed: pt evaluated with treatment team . patient paranoid delusional stated she would be terrified to take the subway indicated thet she will be targeted by terrorist because her father was in the pt also believes because she was in [employer] other people will target her as she was famous pt having tangential thought process with disorganized speech, started crying when she remembered her previous experience in other hospitals as she was restrained because of her agitation due to substance use pt continues to be floridaly psychotic, denied command hallucinations denied suicidal or homicidal ideationsu DSM 5 Symptoms Update: schizoaffective disorder bipolar Medication Change: No Medical Record Reviewed: Yes Mental Status Examination - Cognitive Function Orientation: Person, Place, Situation Attention: Poor Concentration: Poor Association: WNL Fund of Knowledge: WNL Decription of patient's judgement and insights: partial insight , poor judgment - Mood Mood: Anxious - Affect Affect: Depressed - Speech Speech: Soft - Formal Thought Process Formal Thought Process: Delusions, Paranoia, Other (Patient internally preoccupied and bizarre; unwillign to talk w/ policy writer sales at this time) Psychotic Thoughts and Behaviors: paranoid, internally preoccupied, experiencing non command auditory hallucinations, presenting with somatic delusions - Suicidal Ideation Suicidal Ideation: No - Homicidal Ideation Homicidal Ideation: No Goal/Treatment Plan - Goal/Treatment Plan Need for Continued Stay: Discharge may exacerbated symptoms Progress Toward Problem(s) and Goals/Treatment Plan: increase risperidone to 4mg oral risperidone consta im 50mg REMERON 7.5MG QHS motivational, group and supportive therapy Estimated Date of D/C: 05/13/17
[2017-05-11] MEDS: Risperidone M TAB 2 MG PO SCH (21:10)
--- NOTE | 2017-05-12 07:32 | PCM.BM ---
Treatment Plan Problems - Problems identified on initial assessmt Auditory Hallucinations Date Initiated: 05/03/17 Time Initiated: 04:07 Assessment reference: NA Status: Active Medication Nonadherence Date Initiated: 05/03/17 Time Initiated: 04:07 Assessment reference: NA Status: Active Altered Thought Process Date Initiated: 05/03/17 Time Initiated: 04:08 Assessment reference: NA Status: Active Ineffective Coping Date Initiated: 05/03/17 Time Initiated: 04:08 Assessment reference: NA Status: Active Treatment assets and liabiliti Patient Assests: cooperative, educated, ADL independent, physically healthy, good support system, negotiates basic needs Patient Liabilities: other (impaired insight and noncomplinace wiht meds) - Milieu Protocol Maintain good personal hygiene: daily Remind patient to perform daily oral care , every shift Encourage regular showers, every shift Assist patient to perform ADL's Conduct patient checks and document Observation sheet: Q15 minutes Maintain personal safety: daily Educate patient to report safety concerns to staff, every shift Monitor environment for contraband/sharps Medication safety: Monitor for expected outcome, potential side effects: daily, Assess barriers to learning: daily, Assess readiness for medication education: every shift Milieu Narrative: increase risperidone to 4mg oral risperidone consta im 50mg REMERON 7.5MG QHS motivational, group and supportive therapy Family Contact Family involvement: Family/SO is involved Family contact: Patient declines to allow family contact at present Family contact name: Kim Atkinson Family contacted how many times per week?: 4 Family contact comment: Pt originally agreed to allow for famiy contact on 05/03, but then recinded this decision on 05/04. Tightener spoke with pt's mother, Kavita Atkinson ([phone]) on 05/03/17 who had multiple concerns regarding pt. Pt's mother does not understand how pt could have decompensated so quickly and so severely. Pt's mother reported that she has never seen pt present this bizarrely and was fearful that pt may harm herself. Tightener explained that pt is not in danger of intentionally harming herself, but in this psychotic state may engage in impulsive, risky behaviors that may put her in danger. Tightener explained that pt was not discharged too early last time, but may have needed more time on the Risperdal. However, pt does lack needed insight into her illness to understand the need for treatment and continued medication compliance. Tightener feels strongly that pt would benefit from living with her mother after discharge and explained to pt's mother that the team will do everything in their power to ensure that pt is discharged with a more comprehensive plan to avoid such a rapid decompensation. - Goals for Treatment Patient goals for treatment: Pt understands that she requires stabilization, yet at this time pt is extremely internally preoccupied, paranoid, and lacks insight into her condition. Patient's family/SO goals for treatment: Pt's mother would like pt to be stabilized with a more comprehensive discharge plan. Discharge/Continuing Care - Education Needs Education Needs: Patient Medication, Patient Diagnosis/Disease Process, Patient Coping Skills, Patient Placement options, Patient Personal Hygiene/Grooming, Patient Aftercare Safety Plan - Discharge Discharge Criteria: Tolerates medication w/o severe side effects, Free of paranoid thoughts, Free of agitation, Normal sleep pattern, Ability to care for self, Reduction of target symptoms Discharge to:: Home - Treatment Team Participation Patient/Family/SO Statement: increase risperidone to 4mg oral risperidone consta im 50mg REMERON 7.5MG QHS motivational, group and supportive therapy Discussed with Family/SO: Yes Was Patient/Family/SO present at Treatment Team Meeting: Yes Treatment Plan Review - Problem Auditory Hallucinations Date Initiated: 05/11/17 Time Initiated: 04:07 Progress toward outcomes: improved Medication Nonadherence Date Initiated: 05/11/17 Time Initiated: 04:07 Progress toward outcomes: resolved (Pt takes medications as directed and has even received an increased Risperdal injection.) Altered Thought Process Date Initiated: 05/11/17 Time Initiated: 04:08 Progress toward outcomes: unchanged (Pt's thought process is still dominated by paranoia and delusions.) Ineffective Coping Date Initiated: 05/11/17 Time Initiated: 04:08 Progress toward outcomes: unchanged (Pt still lack healthy coping skills and reality testing.) - Discharge / Continuing Care Discharge to:: Home, With Family Behavioral Health Services: Partial hospital Health Needs: Follow up care/test (Pt still lacks insight and judgement and is not able to process discharge discussion at this time. )
[2017-05-12] MEDS: Petrolatum UD PAK TOP SCH ×3 (10:03→17:59)
[2017-05-12] MEDS: Nasal Spray(Ocean spray) NAS PRN ×2 (11:44→23:25)
--- NOTE | 2017-05-12 16:05 | PCM.PYCHPN ---
Psychiatric Progress Note - Psychiatric Progress Note Patient seen today, length of contact: pt evaluated discussed with team chart reviewed Patient Chief Complaint: I am still afraid people will target me on the outside Problems Identified/Issues Discussed: pt evaluated continues to be paranoid presenting with delusions of persecution , pt feels she will be targeted on the outside and she has to hide identity by constantly shaving her hair, thought process still disorganized, labile affect, denied any current suicidal or homicidal ideations denied command hallucinations DSM 5 Symptoms Update: schizoaffective disorder bipolar Medication Change: Yes (start seroquel for augmentation) Medical Record Reviewed: Yes Mental Status Examination - Cognitive Function Orientation: Person, Place, Situation Attention: Poor Concentration: Poor Association: WNL Fund of Knowledge: WNL Decription of patient's judgement and insights: partial insight , poor judgment - Mood Mood: Anxious - Affect Affect: Depressed - Speech Speech: Soft - Formal Thought Process Formal Thought Process: Delusions, Paranoia, Other (Patient internally preoccupied and bizarre; unwillign to talk w/ assembly instructions writer at this time) Psychotic Thoughts and Behaviors: paranoid, internally preoccupied, experiencing non command auditory hallucinations, presenting with somatic delusions - Suicidal Ideation Suicidal Ideation: No - Homicidal Ideation Homicidal Ideation: No Goal/Treatment Plan - Goal/Treatment Plan Need for Continued Stay: Discharge may exacerbated symptoms Progress Toward Problem(s) and Goals/Treatment Plan: risperidone to 4mg oral start [id number] qhs with plan to uptitrate risperidone consta im 50mg discontinue REMERON 7.5MG QHS motivational, group and supportive therapy Estimated Date of D/C: 05/13/17
[2017-05-12] MEDS: Risperidone M TAB 2 MG PO SCH (22:10)
[2017-05-12] MEDS: Alum-Mag Hydrox-Simethicone Susp (30 mL) PO PRN (23:24)
[2017-05-12] MEDS: Artificial Tears Opht Soln OU PRN (23:28)
[2017-05-13] MEDS: Petrolatum UD PAK TOP SCH ×3 (09:11→17:07)
[2017-05-13] MEDS: Risperidone M TAB 2 MG PO SCH (15:10)
--- NOTE | 2017-05-13 15:37 | PCM.PYCHPN ---
Psychiatric Progress Note - Psychiatric Progress Note Patient seen today, length of contact: pt evaluated discussed with team chart reviewed Patient Chief Complaint: I am still afraid the russians will target me because, I had a [place]ian boyfriend Problems Identified/Issues Discussed: pt evaluated continues to be paranoid presenting with delusions of persecution , disorganized thought process, delusions of reference believing that the PEOPLE ON tv ARE TARGETING HER WHEN THEY TALK ABOUT THE RUSSIANS AND THAT BECAUSE SHE HAD A [place] BOYFRIEND , if she is on the outside she will be targeted on the streets pt also believes that because she is a celebrity , she will be followed by people on the train pt presenting also with multiple somatic delusions , floridaly psychotic denied suicidal or homicidal ideations denied command hallucinations DSM 5 Symptoms Update: schizoaffective disorder bipolar Medication Change: Yes (d/c seroquel start zyprexa) Medical Record Reviewed: Yes Mental Status Examination - Cognitive Function Orientation: Person, Place, Situation Attention: Poor Concentration: Poor Association: WNL Fund of Knowledge: WNL Decription of patient's judgement and insights: partial insight , poor judgment - Mood Mood: Anxious - Affect Affect: Depressed - Speech Speech: Soft - Formal Thought Process Formal Thought Process: Delusions, Paranoia, Other (Patient internally preoccupied and bizarre; unwillign to talk w/ underwriter at this time) Psychotic Thoughts and Behaviors: paranoid, internally preoccupied, experiencing non command auditory hallucinations, presenting with somatic delusions - Suicidal Ideation Suicidal Ideation: No - Homicidal Ideation Homicidal Ideation: No Goal/Treatment Plan - Goal/Treatment Plan Need for Continued Stay: Discharge may exacerbated symptoms Progress Toward Problem(s) and Goals/Treatment Plan: pt continues to be floridaly psychotic decrease oral risperidone to 2mg and augment with zyprexa 5mg qhs with plan to uptitrate to 10mg risperidone to 4mg oral risperidone consta im 50mg motivational, group and supportive therapy Estimated Date of D/C: 05/20/17
[2017-05-13] MEDS ORDERED: OLANZapine 5 mg Disintegrating Tab PO SCH (22:00)
[2017-05-14] MEDS: DiphenhydrAMINE 50 mg/ml Inj IM PRN (02:03)
[2017-05-14] MEDS: Risperidone M TAB 2 MG PO SCH (09:13)
[2017-05-14] MEDS: Petrolatum UD PAK TOP SCH ×3 (09:14→17:18)
--- NOTE | 2017-05-14 15:46 | PCM.PYCHPN ---
Psychiatric Progress Note - Psychiatric Progress Note Patient seen today, length of contact: pt evaluated discussed with team chart reviewed Patient Chief Complaint: changes in sleep, changes in cognition paranoia, is having medications adjusted , stopped taking medications prior to being admitted did not feels they were working, notes from previous admission review pt was scheduled to receive claudia sarah [id number]. reports difficulty sleeping Problems Identified/Issues Discussed: alteration in coping alteration in cognition non adherence Medical Problems: per chart Diagnostic Results: per psychiatry per medicine per nursing per social work Medication Change: No Medical Record Reviewed: Yes Consults ordered or reviewed: pt seen by hospitalist Mental Status Examination - Cognitive Function Orientation: Person, Place, Situation Attention: Poor Concentration: Poor Association: WNL Fund of Knowledge: WNL Decription of patient's judgement and insights: impaired - Mood Mood: Anxious - Affect Affect: Depressed - Speech Speech: Soft - Formal Thought Process Formal Thought Process: Delusions, Paranoia, Other (Patient internally preoccupied and bizarre; unwillign to talk w/ health underwriter at this time) - Suicidal Ideation Suicidal Ideation: No - Homicidal Ideation Homicidal Ideation: No Goal/Treatment Plan - Goal/Treatment Plan Need for Continued Stay: Discharge may exacerbated symptoms Progress Toward Problem(s) and Goals/Treatment Plan: inpt milieu visualization/vital signs per protocol and per status increase pt being followed by hospitalist will discontinue trazodone as pt defer wanting to take it at any dose as "does not feel as though it works", review remeron has lactose component-pt lactose intolerant, review will increase zyprexa to 10mg po hs assess as to how it may work-if side effects then notify staff or if issues with sleeping discharge planning in progress Estimated Date of D/C: 05/20/17 - Smoking Cessation Smoking Cessation Initiated: No Reason for not providing: pt defers
[2017-05-15] MEDS: Risperidone M TAB 2 MG PO SCH (10:00)
[2017-05-15] MEDS: Petrolatum UD PAK TOP SCH ×3 (10:00→17:51)
--- NOTE | 2017-05-15 17:41 | PCM.PYCHPN ---
Psychiatric Progress Note - Psychiatric Progress Note Patient seen today, length of contact: pt evaluated discussed with team chart reviewed Patient Chief Complaint: pt per records requested an increase in zyprexa to 10mg po hs last night then later spit it stating it was not real. pt is also reported to have become intrusive with the nursing care of a vjher pt requiring verbal direction from primary rx. pt is noted to have somew biziare behavior on unit walking around with towel draped on head.h Problems Identified/Issues Discussed: alteration in coping alteration in cognition non adherence Medical Problems: per chart Diagnostic Results: per psychiatry per medicine per nursing per social work DSM 5 Symptoms Update: alteration in mood and cognition alteration in coping and self care Medication Change: No Medical Record Reviewed: Yes Consults ordered or reviewed: pt being followed by hospitalist Mental Status Examination - Cognitive Function Orientation: Person, Place, Situation Attention: Poor Concentration: Poor Association: WNL Fund of Knowledge: WNL Decription of patient's judgement and insights: impaired - Mood Mood: Anxious - Affect Affect: Depressed - Speech Speech: Soft - Formal Thought Process Formal Thought Process: Delusions, Paranoia, Other (Patient internally preoccupied and bizarre; unwillign to talk w/ telegraphic typewriter repairer at this time) - Suicidal Ideation Suicidal Ideation: No - Homicidal Ideation Homicidal Ideation: No Goal/Treatment Plan - Goal/Treatment Plan Need for Continued Stay: Discharge may exacerbated symptoms Progress Toward Problem(s) and Goals/Treatment Plan: inpt milieu visualization/vital signs per protocol and per status increase pt being followed by hospitalist will discontinue trazodone as pt defer wanting to take it at any dose as "does not feel as though it works", review remeron has lactose component-pt lactose intolerant, review will change zyprexa to zyprexa zydis 10mg po hs assess as to how it may work-if side effects then notify staff or if issues with sleeping discharge planning in progress Estimated Date of D/C: 05/20/17 - Smoking Cessation Smoking Cessation Initiated: No Reason for not providing: pt defers
[2017-05-15] MEDS: OLANZapine 10 mg Disintegrating Tab PO SCH (21:18)
[2017-05-16] MEDS: Risperidone M TAB 2 MG PO SCH (09:03)
[2017-05-16] MEDS: Petrolatum UD PAK TOP SCH ×3 (09:03→17:56)
[2017-05-16] MEDS: DiphenhydrAMINE 50 mg/ml Inj IM PRN (20:27)
[2017-05-16] MEDS: OLANZapine 10 mg Disintegrating Tab PO SCH (21:41)
--- NOTE | 2017-05-16 21:54 | PCM.PYCHPN ---
Psychiatric Progress Note - Psychiatric Progress Note Patient seen today, length of contact: pt evaluated discussed with team chart reviewed Patient Chief Complaint: staff report that pt has been requesting various medications, then either deferring them and or appear to make her self vomit-pt yesterday requested to specifically asked to be on zyprexa and that she wanted to take the kind that dissolved on her tongue. wished to continue to take the risperdal. pt this evening was reportedly following one her peers while the patient was being evaluated by screeners did not respond to verbal redirection, became verbally aggressive yelling not responding to verbal redirection became loud staff for safety had to call security and pt required to receive prn rx for safety. Problems Identified/Issues Discussed: alteration in coping alteration in cognition non adherence Medical Problems: per chart Diagnostic Results: per psychiatry per medicine per nursing per social work DSM 5 Symptoms Update: lability in mood paranoia Medication Change: No Medical Record Reviewed: Yes Consults ordered or reviewed: pt being followed by hospitalist Mental Status Examination - Cognitive Function Orientation: Person, Place, Situation Attention: Poor Concentration: Poor Association: Loose Fund of Knowledge: Poor Decription of patient's judgement and insights: impaired - Mood Mood: Anxious - Affect Affect: Depressed - Speech Speech: Soft - Formal Thought Process Formal Thought Process: Delusions, Paranoia, Other (Patient internally preoccupied and bizarre; unwillign to talk w/ aligner typewriter at this time) - Suicidal Ideation Suicidal Ideation: No - Homicidal Ideation Homicidal Ideation: No Goal/Treatment Plan - Goal/Treatment Plan Need for Continued Stay: Discharge may exacerbated symptoms Progress Toward Problem(s) and Goals/Treatment Plan: inpt milieu visualization/vital signs per protocol and per status increase pt being followed by hospitalist will discontinue trazodone as pt defer wanting to take it at any dose as "does not feel as though it works", review remeron has lactose component-pt lactose intolerant, review will change ripsderal to risperdal mtab -if side effects then notify staff or if issues with sleeping discharge planning in progress Estimated Date of D/C: 05/20/17 - Smoking Cessation Smoking Cessation Initiated: No Reason for not providing: deferred
[2017-05-17] MEDS: Petrolatum UD PAK TOP SCH ×3 (10:15→17:47)
[2017-05-17] MEDS: Risperidone M TAB 2 MG PO SCH (10:15)
[2017-05-17] MEDS: OLANZapine 10 mg Disintegrating Tab PO SCH (21:47)
[2017-05-18] MEDS: Risperidone M TAB 2 MG PO SCH (09:02)
[2017-05-18] MEDS: Petrolatum UD PAK TOP SCH ×3 (09:02→17:20)
--- NOTE | 2017-05-18 19:36 | PCM.PYCHPN ---
Psychiatric Progress Note - Psychiatric Progress Note Patient seen today, length of contact: late note for [id number] pt evaluated discussed with team chart reviewed Patient Chief Complaint: pt is reported to be labile at times , requiring redirection, pt requests information about medications review with pt that review that pt has been at times not taking rx in po form will change rispderal to mtab form along with olanzapine. staff report that pt has been requesting various medications, then either deferring them and or appear to make her self vomit-pt yesterday requested to specifically asked to be on zyprexa and that she wanted to take the kind that dissolved on her tongue. wished to continue to take the risperdal. pt this evening was reportedly following one her peers while the patient was being evaluated by screeners did not respond to verbal redirection, became verbally aggressive yelling not responding to verbal redirection became loud staff for safety had to call security and pt required to receive prn rx for safety. Problems Identified/Issues Discussed: alteration in coping alteration in cognition non adherence Medical Problems: per chart Diagnostic Results: per psychiatry per medicine per nursing per social work DSM 5 Symptoms Update: alteration in mood alteration in cognition Medication Change: Yes (change rispderdal and zyprexa to disolving form) Medical Record Reviewed: Yes Consults ordered or reviewed: hospitalist Mental Status Examination - Cognitive Function Orientation: Person, Place, Situation Attention: Poor Concentration: Poor Association: Loose Fund of Knowledge: Poor Decription of patient's judgement and insights: impaired - Mood Mood: Anxious - Affect Affect: Depressed - Speech Speech: Soft - Formal Thought Process Formal Thought Process: Delusions, Paranoia, Other (Patient internally preoccupied and bizarre; unwillign to talk w/ pattern chart writer at this time) - Suicidal Ideation Suicidal Ideation: No - Homicidal Ideation Homicidal Ideation: No Goal/Treatment Plan - Goal/Treatment Plan Need for Continued Stay: Discharge may exacerbated symptoms Progress Toward Problem(s) and Goals/Treatment Plan: inpt milieu visualization/vital signs per protocol and per status increase pt being followed by hospitalist will discontinue trazodone as pt defer wanting to take it at any dose as "does not feel as though it works", review remeron has lactose component-pt lactose intolerant, review will change ripsderal to risperdal mtab -if side effects then notify staff or if issues with sleeping discharge planning in progress Estimated Date of D/C: 05/20/17
--- NOTE | 2017-05-18 19:42 | PCM.PYCHPN ---
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 staff report that pt has been requesting various medications, then either deferring them and or appear to make her self vomit-pt yesterday requested to specifically asked to be on zyprexa and that she wanted to take the kind that dissolved on her tongue. wished to continue to take the risperdal. pt this evening was reportedly following one her peers while the patient was being evaluated by screeners did not respond to verbal redirection, became verbally aggressive yelling not responding to verbal redirection became loud staff for safety had to call security and pt required to receive prn rx for safety. Problems Identified/Issues Discussed: alteration in coping alteration in cognition non adherence Medical Problems: per chart Diagnostic Results: per psychiatry per medicine per nursing per social work DSM 5 Symptoms Update: alteration in cognition Medication Change: No Medical Record Reviewed: Yes Consults ordered or reviewed: pt being followed by hospitalist Mental Status Examination - Cognitive Function Orientation: Person, Place, Situation Attention: Poor Concentration: Poor Association: Loose Fund of Knowledge: Poor Decription of patient's judgement and insights: impaired - Mood Mood: Anxious - Affect Affect: Depressed - Speech Speech: Soft - Formal Thought Process Formal Thought Process: Delusions, Paranoia, Other (Patient internally preoccupied and bizarre; unwillign to talk w/ writer editor at this time) - Homicidal Ideation Homicidal Ideation: No Goal/Treatment Plan - Goal/Treatment Plan Need for Continued Stay: Discharge may exacerbated symptoms Progress Toward Problem(s) and Goals/Treatment Plan: inpt milieu visualization/vital signs per protocol and per status increase pt being followed by hospitalist review risperdal and zyprexa will be in dissolved forms assist with adherence pt pending im injectable long acting discharge planning in progress Estimated Date of D/C: 05/23/17 - Smoking Cessation Smoking Cessation Initiated: No
[2017-05-18] MEDS: OLANZapine 10 mg Disintegrating Tab PO SCH (22:10)
[2017-05-19] MEDS: Alum-Mag Hydrox-Simethicone Susp (30 mL) PO PRN (00:51)
[2017-05-19] MEDS: Risperidone M TAB 2 MG PO SCH (11:56)
[2017-05-19] MEDS: Petrolatum UD PAK TOP SCH ×3 (12:09→16:37)
--- NOTE | 2017-05-19 15:17 | PCM.PYCHPN ---
Psychiatric Progress Note - Psychiatric Progress Note Patient seen today, length of contact: pt evaluated discussed with team chart reviewed Patient Chief Complaint: I want to leave a lot of people here are targeting me and want to hurt me Problems Identified/Issues Discussed: pt on evaluation continues to be paranoid and floridaly psychotic, pt stated she would like to leave but worried about being targeted by the media as she is a celebrity and afraid to be recognized, she also reported that multiple staff members are after her and want to hurt her as per her room mate, pt eric steen suddenly turned to a different character and started screaming at her verbally threatening, pt reported that she thinks she disocciates and turns into another violent character pt very labile , arguing about her medications, discussed with pt shifting to haldol and to discontinue risperiddone and zyprexa , pt declined and it is noted that she at times induce vimoiting for non compliance pt accordingly will be continued on risperidone consta , next injection 50mg IM tomorrow pt continues to have visual hallucinations of her god daughter, denied any current command hallucinations, denied S/H I DSM 5 Symptoms Update: SCHIZOAFFECTIVE DISORDER BIPOLAR Medication Change: No Medical Record Reviewed: Yes Mental Status Examination - Cognitive Function Orientation: Person, Place, Situation Attention: Poor Concentration: Poor Association: Loose Fund of Knowledge: Poor - Mood Mood: Anxious - Affect Affect: Depressed - Speech Speech: Soft - Formal Thought Process Formal Thought Process: Delusions, Paranoia, Other (Patient internally preoccupied and bizarre; unwillign to talk w/ conventional underwriter at this time) - Suicidal Ideation Suicidal Ideation: No - Homicidal Ideation Homicidal Ideation: No Goal/Treatment Plan - Goal/Treatment Plan Need for Continued Stay: Discharge may exacerbated symptoms Progress Toward Problem(s) and Goals/Treatment Plan: pt continues to be floridaly psychotic risperidone consta im 50mg tomorrow zyprexa 10mg qhs motivational, group and supportive therapy pt continues to be psychotic , at current mental status needs skilled nursing care for further stabilization Estimated Date of D/C: 05/23/17
[2017-05-19 17:15] LABS: HEMOGLOBIN 12.3 g/dL (12.0-16.0); MEAN CELL VOLUME 89.8 fl (81.0-99.0); MEAN CORPUSCULAR HEMOGLOBIN 29.8 pg (27.0-31.0); MEAN CORPUSCULAR HGB CONC 33.1 g/dL (33.0-37.0); RBC 4.14 Mil/uL (3.80-5.20); RED CELL DISTRIBUTION WIDTH 13.7 % (11.5-14.5); WHITE BLOOD COUNT 12.3 K/uL (4.8-10.8)
[2017-05-19 17:22] LABS: SQUAMOUS EPITHIAL 2 /hpf (0-5); URINE BILIRUBIN NEGATIVE (NEGATIVE); URINE BLOOD NEGATIVE (NEGATIVE); URINE CLARITY CLOUDY (Clear); URINE COLOR STRAW (YELLOW); URINE GLUCOSE (UA) NEG (Normal); URINE LEUKOCYTE ESTERASE NEG Leu/uL (Negative); URINE PROTEIN NEGATIVE (NEGATIVE); URINE UROBILINOGEN 0.2-1.0 mg/dL (0.2-1.0)
[2017-05-19] MEDS: OLANZapine 10 mg Disintegrating Tab PO SCH (21:33)
[2017-05-20 08:10] LABS: ALB/GLOB RATIO 1.2 (1.0-2.1); ALBUMIN 3.7 g/dL (3.5-5.0); ALT/SGPT 66 U/L (9-52); AST/SGOT 30 U/L (14-36); BLOOD UREA NITROGEN 9 mg/dl (7-17); CALCIUM 9.1 mg/dL (8.4-10.2); GFR AFRICAN-AMERICAN > 60; GFR NON-AFRICAN AMERICAN > 60
[2017-05-20] MEDS: Risperidone M TAB 2 MG PO SCH (09:01)
[2017-05-20] MEDS: Petrolatum UD PAK TOP SCH ×3 (09:02→17:25)
--- NOTE | 2017-05-20 15:36 | PCM.PYCHPN ---
Psychiatric Progress Note - Psychiatric Progress Note Patient seen today, length of contact: pt evaluated discussed with team chart reviewed Patient Chief Complaint: I am still paranoid I do not feel safe outside Problems Identified/Issues Discussed: pt evaluated with treatment team pt continues too be floridaly psychotic believing she could not be on the outside as she will be a targeted celebrity and also believes all pts on the unit are targeting her because of her past pt continues to have a labile affect, multiple somatic preoccupation, pt was screened for involuntary admission as she needs detention care however was declined discussed with pt changing her medications and starting perphenazine , while discontinuing zyprexa pt denied command hallucinations denied suicidal or homicidal ideations treatment plan discussed with pt mother upon pt consent DSM 5 Symptoms Update: schizoaffective disorder bipolar Medication Change: Yes (start perphenazine) Medical Record Reviewed: Yes Mental Status Examination - Cognitive Function Orientation: Person, Place, Situation Attention: Poor Concentration: Poor Association: Loose Fund of Knowledge: Poor - Mood Mood: Anxious - Affect Affect: Depressed - Speech Speech: Soft - Formal Thought Process Formal Thought Process: Delusions, Paranoia, Other (Patient internally preoccupied and bizarre; unwillign to talk w/ loan underwriter at this time) - Suicidal Ideation Suicidal Ideation: No - Homicidal Ideation Homicidal Ideation: No Goal/Treatment Plan - Goal/Treatment Plan Need for Continued Stay: Discharge may exacerbated symptoms Progress Toward Problem(s) and Goals/Treatment Plan: pt continues to be floridaly psychotic risperidone consta im 50mg , 2mg oral risperidone discontinue zyprexa 10mg qhs start perphenazine 2mg bid monitor pt for psychopharmacological effects and side effect profile motivational, group and supportive therapy pt continues to be psychotic , at current mental status needs detention care for further stabilization Estimated Date of D/C: 05/23/17
--- NOTE | 2017-05-20 17:21 | PCM.BM ---
Treatment Plan Problems - Problems identified on initial assessmt Auditory Hallucinations Date Initiated: 05/03/17 Time Initiated: 04:07 Assessment reference: NA Status: Active Medication Nonadherence Date Initiated: 05/03/17 Time Initiated: 04:07 Assessment reference: NA Status: Active Altered Thought Process Date Initiated: 05/03/17 Time Initiated: 04:08 Assessment reference: NA Status: Active Ineffective Coping Date Initiated: 05/03/17 Time Initiated: 04:08 Assessment reference: NA Status: Active Treatment assets and liabiliti Patient Assests: cooperative, educated, ADL independent, physically healthy, good support system, negotiates basic needs Patient Liabilities: other (impaired insight and noncomplinace wiht meds) - Milieu Protocol Maintain good personal hygiene: daily Remind patient to perform daily oral care , every shift Encourage regular showers, every shift Assist patient to perform ADL's Conduct patient checks and document Observation sheet: Q15 minutes Maintain personal safety: daily Educate patient to report safety concerns to staff, every shift Monitor environment for contraband/sharps Medication safety: Monitor for expected outcome, potential side effects: daily, Assess barriers to learning: daily, Assess readiness for medication education: every shift Milieu Narrative: pt continues to be floridaly psychotic risperidone consta im 50mg , 2mg oral risperidone discontinue zyprexa 10mg qhs start perphenazine 2mg bid monitor pt for psychopharmacological effects and side effect profile motivational, group and supportive therapy pt continues to be psychotic , at current mental status needs usp care for further stabilization Family Contact Family involvement: Family/SO is involved Family contact: Patient declines to allow family contact at present Family contact name: Kim Atkinson Family contacted how many times per week?: 4 Family contact comment: Pt originally agreed to allow for famiy contact on 05/03, but then recinded this decision on 05/04. Blacksmith Supervisor spoke with pt's mother, Kavita Atkinson ([phone]) on 05/03/17 who had multiple concerns regarding pt. Pt's mother does not understand how pt could have decompensated so quickly and so severely. Pt's mother reported that she has never seen pt present this bizarrely and was fearful that pt may harm herself. Blacksmith Supervisor explained that pt is not in danger of intentionally harming herself, but in this psychotic state may engage in impulsive, risky behaviors that may put her in danger. Blacksmith Supervisor explained that pt was not discharged too early last time, but may have needed more time on the Risperdal. However, pt does lack needed insight into her illness to understand the need for treatment and continued medication compliance. Blacksmith Supervisor feels strongly that pt would benefit from living with her mother after discharge and explained to pt's mother that the team will do everything in their power to ensure that pt is discharged with a more comprehensive plan to avoid such a rapid decompensation. - Goals for Treatment Patient goals for treatment: Pt understands that she requires stabilization, yet at this time pt is extremely internally preoccupied, paranoid, and lacks insight into her condition. Patient's family/SO goals for treatment: Pt's mother would like pt to be stabilized with a more comprehensive discharge plan. Discharge/Continuing Care - Education Needs Education Needs: Patient Medication, Patient Diagnosis/Disease Process, Patient Coping Skills, Patient Placement options, Patient Personal Hygiene/Grooming, Patient Aftercare Safety Plan - Discharge Discharge Criteria: Tolerates medication w/o severe side effects, Free of paranoid thoughts, Free of agitation, Normal sleep pattern, Ability to care for self, Reduction of target symptoms Discharge to:: Home, With Family - Treatment Team Participation Patient/Family/SO Statement: pt continues to be floridaly psychotic risperidone consta im 50mg , 2mg oral risperidone discontinue zyprexa 10mg qhs start perphenazine 2mg bid monitor pt for psychopharmacological effects and side effect profile motivational, group and supportive therapy pt continues to be psychotic , at current mental status needs dedicated intermodal truck driver care for further stabilization Discussed with Family/SO: Yes Was Patient/Family/SO present at Treatment Team Meeting: Yes Treatment Plan Review - Problem Auditory Hallucinations Date Initiated: 05/11/17 Time Initiated: 04:07 Progress toward outcomes: improved Medication Nonadherence Date Initiated: 05/11/17 Time Initiated: 04:07 Progress toward outcomes: resolved (Pt takes medications as directed and has even received an increased Risperdal injection.) Altered Thought Process Date Initiated: 05/11/17 Time Initiated: 04:08 Progress toward outcomes: unchanged (Pt's thought process is still dominated by paranoia and delusions.) Ineffective Coping Date Initiated: 05/11/17 Time Initiated: 04:08 Progress toward outcomes: unchanged (Pt still lack healthy coping skills and reality testing.) - Discharge / Continuing Care Discharge to:: Home Behavioral Health Services: Partial hospital, Residential treatment (Pt is still extremely paranoid and increasingly aggressive toward staff and other patients. Pt remains too psychotic to discuss discharge planning. )
--- NOTE | 2017-05-21 09:58 | PCM.PYCHPN ---
Psychiatric Progress Note - Psychiatric Progress Note Patient seen today, length of contact: Patient evaluated, chart reviewed Patient Chief Complaint: "I'm worried about my roommate." Problems Identified/Issues Discussed: Patient continues to be bizarre, oddly related, sexually preoccupied and acutely paranoid. She was so paranoid about her roommate that she slept in the quiet room. She has poor insight into the severity of her acute psychosis. She denies adverse effects to medications at this time. She was screened by [facility] [place] and did not meet criteria for involuntary commitment at this time, but patient is agreeable to staying for continued inpatient psychiatric hospitalization. Medication Change: Yes (Increase Perphenazine to 2 mg PO TID) Medical Record Reviewed: Yes Consults ordered or reviewed: Medicine Mental Status Examination - Cognitive Function Orientation: Person, Place, Situation Attention: Poor Concentration: Poor Association: Loose Fund of Knowledge: Poor Decription of patient's judgement and insights: Poor I/J - Mood Mood: Anxious - Affect Affect: Constricted - Speech Speech: Soft - Formal Thought Process Formal Thought Process: Delusions, Paranoia, Loosening of associations, Other ( Patient internally preoccupied and bizarre) Psychotic Thoughts and Behaviors: +Paranoia - Suicidal Ideation Suicidal Ideation: No - Homicidal Ideation Homicidal Ideation: No Goal/Treatment Plan - Goal/Treatment Plan Need for Continued Stay: Discharge may exacerbated symptoms Progress Toward Problem(s) and Goals/Treatment Plan: Schizoaffective disorder; patient needs acute hospitalization for treatment and safety -Individual and group therapy -Risperdal Consta 50 mg IM given on 05/20/17 -Increase Perphenazine to 2 mg PO TID -Continue Trazodone 100 mg PO HS -Psychoeducation -Medicine consult -Disposition planning Estimated Date of D/C: 05/25/17
[2017-05-21] MEDS: Petrolatum UD PAK TOP SCH ×3 (10:00→17:33)
[2017-05-21 12:00] LABS: BASO # 0.1 K/uL (0.0-0.2); BASO % 0.5 % (0.0-2.0); EOS # 0.1 K/uL (0.0-0.7); EOS % 1.1 % (0.0-4.0); HEMOGLOBIN 12.5 g/dL (12.0-16.0); LYMPH # 2.3 K/uL (1.0-4.3); LYMPH % 18.2 % (20.0-40.0); MEAN CELL VOLUME 90.3 fl (81.0-99.0); MEAN CORPUSCULAR HEMOGLOBIN 30.1 pg (27.0-31.0); MEAN CORPUSCULAR HGB CONC 33.3 g/dL (33.0-37.0); MEAN PLATELET VOLUME 7.7 fl (7.2-11.7); MONO # 0.8 K/uL (0.0-0.8); MONO % 5.9 % (0.0-10.0); NEUT # 9.5 K/uL (1.8-7.0); NEUT % 74.3 % (50.0-75.0); RBC 4.16 Mil/uL (3.80-5.20); RED CELL DISTRIBUTION WIDTH 13.8 % (11.5-14.5); WHITE BLOOD COUNT 12.7 K/uL (4.8-10.8)
[2017-05-21] MEDS: Risperidone M TAB 2 MG PO SCH (12:16)
[2017-05-21 12:38] LABS: ALB/GLOB RATIO 1.2 (1.0-2.1); ALBUMIN 4.1 g/dL (3.5-5.0); ALT/SGPT 57 U/L (9-52); AST/SGOT 36 U/L (14-36); BLOOD UREA NITROGEN 8 mg/dl (7-17); CALCIUM 9.3 mg/dL (8.4-10.2); GFR AFRICAN-AMERICAN > 60; GFR NON-AFRICAN AMERICAN > 60
[2017-05-22] MEDS: Risperidone M TAB 2 MG PO SCH (09:57)
[2017-05-22] MEDS: Petrolatum UD PAK TOP SCH ×3 (10:00→17:42)
--- NOTE | 2017-05-22 10:34 | PCM.PYCHPN ---
Psychiatric Progress Note - Psychiatric Progress Note Patient seen today, length of contact: Patient evaluated, chart reviewed Patient Chief Complaint: "I'm worried about my roommate." Problems Identified/Issues Discussed: Patient continues to be bizarre and acutely paranoid. She has poor insight into the severity of her acute psychosis. She denies adverse effects to medications at this time. Medication Change: No Medical Record Reviewed: Yes Consults ordered or reviewed: Medicine Mental Status Examination - Cognitive Function Orientation: Person, Place, Situation, Time Memory: Intact Attention: WNL Concentration: Poor Association: Loose Decription of patient's judgement and insights: Poor I/J - Mood Mood: Anxious - Affect Affect: Constricted - Speech Speech: Soft - Formal Thought Process Formal Thought Process: Delusions, Paranoia, Loosening of associations, Other ( Patient internally preoccupied and bizarre) Psychotic Thoughts and Behaviors: +Paranoia - Suicidal Ideation Suicidal Ideation: No - Homicidal Ideation Homicidal Ideation: No Goal/Treatment Plan - Goal/Treatment Plan Need for Continued Stay: Discharge may exacerbated symptoms Progress Toward Problem(s) and Goals/Treatment Plan: Schizoaffective disorder; patient needs acute hospitalization for treatment and safety -Individual and group therapy -Risperdal Consta 50 mg IM given on 05/20/17 -Continue Perphenazine to 2 mg PO TID -Continue Trazodone 100 mg PO HS -Psychoeducation -Medicine consult -Disposition planning Estimated Date of D/C: 05/25/17
[2017-05-23] MEDS: Petrolatum UD PAK TOP SCH ×3 (09:00→18:34)
[2017-05-23] MEDS: Risperidone M TAB 2 MG PO SCH (09:22)
--- NOTE | 2017-05-23 16:04 | PCM.PYCHPN ---
Psychiatric Progress Note - Psychiatric Progress Note Patient seen today, length of contact: Patient evaluated, chart reviewed Patient Chief Complaint: I am still paranoid I do not feel safe outside Problems Identified/Issues Discussed: pt on evaluation, appears calmer, continues to be paranoid and reported feeling unsafe continues to have delusions of persecution believing other patient s are targeting her denied suicidal or homicdal ideations denied command hallucinations no reported side effects of perphenazine DSM 5 Symptoms Update: schizoaffective disorder bipolar Medication Change: No Medical Record Reviewed: Yes Mental Status Examination - Cognitive Function Orientation: Person, Place, Situation, Time Memory: Intact Attention: WNL Concentration: Poor Association: Loose - Mood Mood: Anxious - Affect Affect: Constricted - Speech Speech: Soft - Formal Thought Process Formal Thought Process: Delusions, Paranoia, Loosening of associations, Other ( Patient internally preoccupied and bizarre) - Suicidal Ideation Suicidal Ideation: No - Homicidal Ideation Homicidal Ideation: No Goal/Treatment Plan - Goal/Treatment Plan Need for Continued Stay: Discharge may exacerbated symptoms Progress Toward Problem(s) and Goals/Treatment Plan: pt continues to be floridaly psychotic risperidone consta im 50mg , 2mg oral risperidone perphenazine 2mg tid, will increase gradually monitor pt for psychopharmacological effects and side effect profile motivational, group and supportive therapy pt continues to be psychotic , at current mental status needs human development professor care for further stabilization Estimated Date of D/C: 05/25/17
[2017-05-23 17:33] LABS: HEMOGLOBIN 12.2 g/dL (12.0-16.0); MEAN CELL VOLUME 90.3 fl (81.0-99.0); MEAN CORPUSCULAR HEMOGLOBIN 30.1 pg (27.0-31.0); MEAN CORPUSCULAR HGB CONC 33.3 g/dL (33.0-37.0); RBC 4.05 Mil/uL (3.80-5.20); RED CELL DISTRIBUTION WIDTH 13.7 % (11.5-14.5); WHITE BLOOD COUNT 10.2 K/uL (4.8-10.8)
[2017-05-24] MEDS: Risperidone M TAB 2 MG PO SCH (10:10)
[2017-05-24] MEDS: Petrolatum UD PAK TOP SCH ×3 (10:10→17:27)
--- NOTE | 2017-05-24 17:44 | PCM.PYCHPN ---
Psychiatric Progress Note - Psychiatric Progress Note Patient seen today, length of contact: Patient evaluated, chart reviewed Patient Chief Complaint: I am still paranoid but less maybe 5/10 Problems Identified/Issues Discussed: pt on evaluation, appears calmer, reported better sleep last night , rating her paranoid delusions 5/10 with some noted improvement denied suicidal or homicdal ideations denied command hallucinations no reported side effects of perphenazine, DSM 5 Symptoms Update: schizoaffective disorder bipolar Medication Change: Yes (increase perphenazine) Medical Record Reviewed: Yes Mental Status Examination - Cognitive Function Orientation: Person, Place, Situation, Time Memory: Intact Attention: WNL Concentration: Poor Association: Loose Fund of Knowledge: Poor Decription of patient's judgement and insights: partial insight poor judgement - Mood Mood: Anxious - Affect Affect: Constricted - Speech Speech: Soft - Formal Thought Process Formal Thought Process: Delusions, Paranoia, Loosening of associations, Other ( Patient internally preoccupied and bizarre) Psychotic Thoughts and Behaviors: pt continues to report feeling followed by ghosts - Suicidal Ideation Suicidal Ideation: No - Homicidal Ideation Homicidal Ideation: No Goal/Treatment Plan - Goal/Treatment Plan Need for Continued Stay: Discharge may exacerbated symptoms Progress Toward Problem(s) and Goals/Treatment Plan: pt continues to be floridaly psychotic risperidone consta im 50mg ,discontinue 2mg oral risperidone increase perphenazine to 2mg bid and 4mg qhs cogentin 0.5mg bid monitor pt for psychopharmacological effects and side effect profile motivational, group and supportive therapy Estimated Date of D/C: 06/08/17
[2017-05-25] MEDS: Petrolatum UD PAK TOP SCH ×4 (09:03→17:05)
--- NOTE | 2017-05-25 15:18 | PCM.PYCHPN ---
Psychiatric Progress Note - Psychiatric Progress Note Patient seen today, length of contact: Patient evaluated, chart reviewed Patient Chief Complaint: I am feeling more relaxed and I am less paranoid Problems Identified/Issues Discussed: pt on evaluation, appears calmer, reported feeling more relaxed and having better sleep last night , rpt less paranoid , interacting more with surrounding patients, noted improvement in her affect ,denied suicidal or homicidal ideations denied command hallucinations no reported side effects of perphenazine, DSM 5 Symptoms Update: schizoaffective disorder bipolar Medication Change: No (increase perphenazine) Medical Record Reviewed: Yes Mental Status Examination - Cognitive Function Orientation: Person, Place, Situation, Time Memory: Intact Attention: WNL Concentration: WNL Association: WNL Fund of Knowledge: WNL Decription of patient's judgement and insights: partial insight poor judgement - Mood Mood: Anxious - Affect Affect: Constricted - Speech Speech: Soft - Formal Thought Process Formal Thought Process: Delusions, Paranoia, Circumstantial, Other (Patient internally preoccupied and bizarre) Psychotic Thoughts and Behaviors: pt continues to report feeling followed by ghosts - Suicidal Ideation Suicidal Ideation: No - Homicidal Ideation Homicidal Ideation: No Goal/Treatment Plan - Goal/Treatment Plan Need for Continued Stay: Discharge may exacerbated symptoms Progress Toward Problem(s) and Goals/Treatment Plan: pt shwing clearing off of her paranoid delusions continue with risperidone consta im 50mg ,[id number] perphenazine 2mg bid and 4mg qhs cogentin 0.5mg bid monitor pt for psychopharmacological effects and side effect profile motivational, group and supportive therapy Estimated Date of D/C: 06/08/17
[2017-05-26] MEDS: Petrolatum UD PAK TOP SCH ×2 (09:03→17:16)
--- NOTE | 2017-05-27 15:21 | PCM.PYCHPN ---
Psychiatric Progress Note - Psychiatric Progress Note Patient seen today, length of contact: Patient evaluated, chart reviewed Patient Chief Complaint: I am alright , but feeling anxious because ther was a lot of noise on the unit Problems Identified/Issues Discussed: pt evaluated with treatment team , patient appears calmer , thought process less disorganized however continues to have somatic delusions believing she is , also reported about being targeted on the outside as she continues to think she would be a celebrity pt denied any current command hallucinations denied suicidal or homicidal ideations, no reported side effects of medications pt attending groups, compliant with treatment agrees with after care plan to join [facility] program DSM 5 Symptoms Update: schizoaffective disorder bipolar Medication Change: No Medical Record Reviewed: Yes Mental Status Examination - Cognitive Function Orientation: Person, Place, Situation, Time Memory: Intact Attention: WNL Concentration: WNL Association: WNL Fund of Knowledge: WN Decription of patient's judgement and insights: partial insight poor judgement - Mood Mood: Anxious - Affect Affect: Constricted - Speech Speech: Soft - Formal Thought Process Formal Thought Process: Delusions, Paranoia, Circumstantial, Other (Patient internally preoccupied and bizarre) Psychotic Thoughts and Behaviors: pt continues to report feeling followed by ghosts - Suicidal Ideation Suicidal Ideation: No - Homicidal Ideation Homicidal Ideation: No Goal/Treatment Plan - Goal/Treatment Plan Need for Continued Stay: Discharge may exacerbated symptoms Progress Toward Problem(s) and Goals/Treatment Plan: pt showing partial clearing off of her paranoid delusions continue with risperidone consta im 50mg ,[id number] perphenazine 2mg bid and 6mg qhs cogentin 0.5mg tid monitor pt for psychopharmacological effects and side effect profile motivational, group and supportive therapy Estimated Date of D/C: 06/08/17
--- NOTE | 2017-05-28 15:57 | PCM.PYCHPN ---
Psychiatric Progress Note - Psychiatric Progress Note Patient seen today, length of contact: Patient evaluated, chart reviewed Patient Chief Complaint: I am good Problems Identified/Issues Discussed: pt evaluated with mother upon pt consent , patient appears calmer , thought process less disorganized continues to have paranoid delusions reported about being targeted on the outside as she continues to think she would be a celebrity, pt however has insight able to recognize it as a delusion and over valued idea by her pt denied any current command hallucinations denied suicidal or homicidal ideations, no reported side effects of medications pt attending groups, compliant with treatment agrees with after care plan to join [facility] program DSM 5 Symptoms Update: schizoaffective disorder Medication Change: No Medical Record Reviewed: Yes Mental Status Examination - Cognitive Function Orientation: Person, Place, Situation, Time Memory: Intact Attention: WNL Concentration: WNL Association: WNL Fund of Knowledge: [facility] Decription of patient's judgement and insights: partial insight poor judgement - Mood Mood: Anxious - Affect Affect: Constricted - Speech Speech: Soft - Formal Thought Process Formal Thought Process: Delusions, Paranoia, Circumstantial, Other (Patient internally preoccupied and bizarre) Psychotic Thoughts and Behaviors: pt continues to report feeling followed by ghosts - Suicidal Ideation Suicidal Ideation: No - Homicidal Ideation Homicidal Ideation: No Goal/Treatment Plan - Goal/Treatment Plan Need for Continued Stay: Discharge may exacerbated symptoms Progress Toward Problem(s) and Goals/Treatment Plan: pt showing partial clearing off of her paranoid delusions continue with risperidone consta im 50mg ,[id number] perphenazine 2mg bid and 6mg qhs cogentin 0.5mg tid monitor pt for psychopharmacological effects and side effect profile motivational, group and supportive therapy Estimated Date of D/C: 06/08/17
--- NOTE | 2017-05-29 13:50 | PCM.PYCHPN ---
Psychiatric Progress Note - Psychiatric Progress Note Patient seen today, length of contact: Patient evaluated, chart reviewed Patient Chief Complaint: I am alright but my arm still hurts Problems Identified/Issues Discussed: pt evaluated , patient appears calmer , thought process less disorganized continues to have paranoid delusions , pt however has insight able to recognize it as a delusion and over valued idea by her pt denied any current command hallucinations denied suicidal or homicidal ideations, no reported side effects of medications pt attending groups, compliant with treatment agrees with after care plan to join [facility] program DSM 5 Symptoms Update: schizoaffective disorder bipolar Medication Change: No Medical Record Reviewed: Yes Mental Status Examination - Cognitive Function Orientation: Person, Place, Situation, Time Memory: Intact Attention: WNL Concentration: WNL Association: WNL Fund of Knowledge: WN Decription of patient's judgement and insights: partial insight poor judgement - Mood Mood: Anxious - Affect Affect: Constricted - Speech Speech: Soft - Formal Thought Process Formal Thought Process: Delusions, Paranoia, Circumstantial, Other (Patient internally preoccupied and bizarre) Psychotic Thoughts and Behaviors: pt continues to report feeling followed by ghosts - Suicidal Ideation Suicidal Ideation: No - Homicidal Ideation Homicidal Ideation: No Goal/Treatment Plan - Goal/Treatment Plan Need for Continued Stay: Discharge may exacerbated symptoms Progress Toward Problem(s) and Goals/Treatment Plan: pt showing partial clearing off of her paranoid delusions continue with risperidone consta im 50mg ,[id number] perphenazine 2mg bid and 6mg qhs cogentin 0.5mg tid monitor pt for psychopharmacological effects and side effect profile motivational, group and supportive therapy Estimated Date of D/C: 06/08/17
--- NOTE | 2017-05-30 16:09 | PCM.PYCHPN ---
Psychiatric Progress Note - Psychiatric Progress Note Patient seen today, length of contact: Patient evaluated, chart reviewed Patient Chief Complaint: I am better only anxious about leaving Problems Identified/Issues Discussed: pt evaluated , patient appears calmer , thought process less disorganized clearing off of the paranoid delusions , pt denied any current command hallucinations denied suicidal or homicidal ideations, no reported side effects of medications pt attending groups, compliant with treatment agrees with after care plan to join [facility] program awaiting referral by social and political studies professor DSM 5 Symptoms Update: schizoaffective disorder bipolar Medication Change: No Medical Record Reviewed: Yes Mental Status Examination - Cognitive Function Orientation: Person, Place, Situation, Time Memory: Intact Attention: WNL Concentration: WNL Association: WNL Fund of Knowledge: WN Decription of patient's judgement and insights: partial insight poor judgement - Mood Mood: Anxious - Affect Affect: Constricted - Speech Speech: Soft - Formal Thought Process Formal Thought Process: Paranoia, Circumstantial, Other (Patient internally preoccupied and bizarre) Psychotic Thoughts and Behaviors: pt continues to report feeling followed by ghosts - Suicidal Ideation Suicidal Ideation: No - Homicidal Ideation Homicidal Ideation: No Goal/Treatment Plan - Goal/Treatment Plan Need for Continued Stay: Discharge may exacerbated symptoms Progress Toward Problem(s) and Goals/Treatment Plan: pt showing partial clearing off of her paranoid delusions continue with risperidone consta im 50mg ,[id number] perphenazine 2mg bid and 6mg qhs cogentin 0.5mg tid monitor pt for psychopharmacological effects and side effect profile motivational, group and supportive therapy Estimated Date of D/C: 06/08/17
[2017-05-31 09:09] VITALS: RESP 18
--- NOTE | 2017-05-31 13:38 | PCM.PYCHPN ---
Psychiatric Progress Note - Psychiatric Progress Note Patient seen today, length of contact: Patient evaluated, chart reviewed Patient Chief Complaint: I am better TODAY Problems Identified/Issues Discussed: pt evaluated , patient appears calmer , thought process less disorganized clearing off of the paranoid delusions , reported feeling less anxious about discharge pt denied any current command hallucinations denied suicidal or homicidal ideations, no reported side effects of medications pt attending groups, compliant with treatment agrees with after care plan to join [facility] program awaiting referral by social work msw DSM 5 Symptoms Update: schizoaffective disorder bipolar Medication Change: No Medical Record Reviewed: Yes Mental Status Examination - Cognitive Function Orientation: Person, Place, Situation, Time Memory: Intact Attention: WNL Concentration: WNL Association: WNL Fund of Knowledge: [facility] Decription of patient's judgement and insights: partial insight poor judgement - Mood Mood: Anxious - Affect Affect: Constricted - Speech Speech: Soft - Formal Thought Process Formal Thought Process: Paranoia, Circumstantial, Other (Patient internally preoccupied and bizarre) Psychotic Thoughts and Behaviors: pt continues to report feeling followed by ghosts - Suicidal Ideation Suicidal Ideation: No - Homicidal Ideation Homicidal Ideation: No Goal/Treatment Plan - Goal/Treatment Plan Need for Continued Stay: Discharge may exacerbated symptoms Progress Toward Problem(s) and Goals/Treatment Plan: pt showing partial clearing off of her paranoid delusions continue with risperidone consta im 50mg ,[id number] last dose 05/20/17 perphenazine 2mg bid and 4mg qhs cogentin 0.5mg tid monitor pt for psychopharmacological effects and side effect profile motivational, group and supportive therapy Estimated Date of D/C: 06/08/17
--- NOTE | 2017-06-01 13:53 | PCM.PYCHPN ---
Psychiatric Progress Note - Psychiatric Progress Note Patient seen today, length of contact: Patient evaluated, chart reviewed Patient Chief Complaint: I am better , but anxious about leaving Problems Identified/Issues Discussed: pt evaluated , patient appears calmer , thought process less disorganized reported feeling anxious about discharge , denied any current paranoid delusions , CBT PROVIDED , DISCUSSED WITH PT POSITIVE THOUGHTS WITH HER PREVIOUS ABILITY TO COMMUTE ON HER OWN AND EVEN TO HANDLE HER JOB pt denied any current command hallucinations denied suicidal or homicidal ideations, no reported side effects of medications pt attending groups, compliant with treatment agrees with after care plan to join [facility] program awaiting referral by medical social worker to [facility] DSM 5 Symptoms Update: schizoaffective dissorder Medication Change: No Medical Record Reviewed: Yes Mental Status Examination - Cognitive Function Orientation: Person, Place, Situation, Time Memory: Intact Attention: WNL Concentration: WNL Association: WNL Fund of Knowledge: [facility] Decription of patient's judgement and insights: partial insight poor judgement - Mood Mood: Anxious - Affect Affect: Constricted - Speech Speech: Soft - Formal Thought Process Formal Thought Process: Paranoia, Circumstantial, Other (Patient internally preoccupied and bizarre) Psychotic Thoughts and Behaviors: pt continues to report feeling followed by ghosts - Suicidal Ideation Suicidal Ideation: No - Homicidal Ideation Homicidal Ideation: No Goal/Treatment Plan - Goal/Treatment Plan Need for Continued Stay: Discharge may exacerbated symptoms Progress Toward Problem(s) and Goals/Treatment Plan: continue with risperidone consta im 50mg ,[id number] last dose 05/20/17 perphenazine 2mg daily and 6mg qhs cogentin 0.5mg qhs , vistaril prn for anxiety monitor pt for psychopharmacological effects and side effect profile motivational, group and supportive therapy Estimated Date of D/C: 06/08/17
--- NOTE | 2017-06-02 13:54 | PCM.PYCHPN ---
Psychiatric Progress Note - Psychiatric Progress Note Patient seen today, length of contact: Patient evaluated, chart reviewed Patient Chief Complaint: I am good ready to leave Problems Identified/Issues Discussed: pt evaluated , patient appears calmer , thought process less disorganized reported feeling ready for discharge , denied any current paranoid delusions , R JOB pt denied any current command hallucinations denied suicidal or homicidal ideations, no reported side effects of medications pt attending groups, compliant with treatment agrees with after care plan to join [facility] program awaiting referral by social economist to [facility] DSM 5 Symptoms Update: schizoaffective disorder bipolar type Medication Change: No Medical Record Reviewed: Yes Mental Status Examination - Cognitive Function Orientation: Person, Place, Situation, Time Memory: Intact Attention: WNL Concentration: WNL Association: WNL Fund of Knowledge: [facility] Decription of patient's judgement and insights: partial insight poor judgement - Mood Mood: Anxious - Affect Affect: Constricted - Speech Speech: Soft - Formal Thought Process Formal Thought Process: Paranoia, Circumstantial, Other (Patient internally preoccupied and bizarre) Psychotic Thoughts and Behaviors: pt continues to report feeling followed by ghosts - Suicidal Ideation Suicidal Ideation: No - Homicidal Ideation Homicidal Ideation: No Goal/Treatment Plan - Goal/Treatment Plan Need for Continued Stay: Discharge may exacerbated symptoms Progress Toward Problem(s) and Goals/Treatment Plan: continue with risperidone consta im 50mg ,[id number] last dose 06/02/17 perphenazine 2mg daily and 6mg qhs, EKG normal cogentin 0.5mg qhs , vistaril prn for anxiety monitor pt for psychopharmacological effects and side effect profile motivational, group and supportive therapy Estimated Date of D/C: 06/08/17
[2017-06-03 09:30] VITALS: BP 112/67; PULSE 73; TEMP 97.3
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
--- NOTE | 2017-06-03 13:44 | CARD ---
APPROVED REPORT EKG Measurement Heart [id number] <Conclusion> Sinus bradycardia Otherwise normal ECG
== END 2017-06-03 11:43 | disposition home or self-care (01) | DRG 885 ==
LOC: H.ER 21:52 → H.ERHOLD 05-03 01:51 → H.PSYCH 05-03 03:40
PROVIDERS: ADMIT Psychiatry & Neurology Psychiatry; ATTEND Psychiatry & Neurology Psychiatry
PROC: GZHZZZZ Group Psychotherapy (ICD-10-PCS; principal; 2017-05-03)
PROC: GZ51ZZZ Individual Psychotherapy, Behavioral (ICD-10-PCS; 2017-05-03)
DX: F31.64 Bipolar disorder, current episode mixed, severe, with psychotic features (principal); Z91.14 Patient's other noncompliance with medication regimen; F10.10 Alcohol abuse, uncomplicated; N39.0 Urinary tract infection, site not specified; F12.90 Cannabis use, unspecified, uncomplicated; F43.10 Post-traumatic stress disorder, unspecified; Z91.19 Patient's noncompliance with other medical treatment and regimen; Z79.899 Other long term (current) drug therapy; G47.9 Sleep disorder, unspecified; R11.10 Vomiting, unspecified; R19.7 Diarrhea, unspecified; R45.87 Impulsiveness; R63.0 Anorexia